=== PATIENT | female | born 1950 | race Caucasian/White ===

== ENCOUNTER 2017-01-17 14:31 | Emergency (ER) | payer OTHER ==
[2017-01-17 14:42] VITALS: BP 149/87
--- NOTE | 2017-01-17 15:40 | ED Physician Documentation ---
History of Present Illness - Stated complaint Stated Complaint: R ANKLE INJ - Chief complaint Chief Complaint: Ext Problem - Additonal information Additional information: hx from pt 66 female hx syncope with swallowing which has been worked up already and is not new per pt had syncope with swallowing today hurt her ankle no other injuries otherwise well and does not feel she needs more investigation into her syncopal episodes which have already been worked up Review of Systems Musculoskeletal: reports: Pain with weight bearing. denies: Neck pain Neurologic: denies: Head injury PD PAST MEDICAL HISTORY - Past Medical History Past Medical History: Yes Cardiovascular: None Respiratory: Asthma Endocrine/Autoimmune: None GI: Ulcerative colitis VEHICLE CARE SPECIALIST: None : None HEENT: None Psych: None Musculoskeletal: None Derm: None - Past Surgical History Past Surgical History: Yes /VEHICLE CARE SPECIALIST: Tubal ligation, Oophrectomy - Allergies Allergies/Adverse Reactions: Allergies Allergy/AdvReac Type Severity Reaction Status Date / Time iodine Allergy Itching Verified 01/17/17 14:42 - Social History Does the pt smoke?: No Smoking Status: Never smoker Does the pt drink ETOH?: Yes Does the pt have substance abuse?: No - Immunizations Immunizations are current?: Yes - POLST Patient has POLST: No PD ED PE NORMAL - Vitals Vital signs reviewed: Yes - Cardiac Cardiac: RRR - Respiratory Respiratory: No respiratory distress, Clear bilaterally - Abdomen Abdomen: Soft, Non tender - Derm Derm: Normal color - Extremities Extremities: Other (swelling to R ankle, no foot pain, no sig prox tib fib pain , no laxity, TTP chari mall and ant ankle, achilles intact, MSV intact, no open wound) Results - Vitals Vitals: Vital Signs - 24 hr 01/17/17 14:40 Temperature 36.7 C Heart Rate 72 Respiratory 18 Rate Blood Pressure 149/87 H O2 Saturation 99 Oxygen O2 Source Room air - EKG (time done) 1453 Rate: Rate (enter#) Rhythm: NSR [place]: RAD Intervals: RBBB (partial) QRS: Normal Ischemia: Normal ST segments Compare to prior EKG: Old EKG unavailable - Rads (name of study) ankle Radiology: See rad report (oblique inferior fibula fx 3 mm displacement and widened mortise) PD MEDICAL DECISION MAKING - ED course ED course: pt declined splint and wanted a walking boot and says she fully understands that she must not bear any weight Departure - Departure Disposition: Home, Self Care Clinical Impression: Ankle fracture, right Qualifiers: Encounter type: initial encounter Fracture type: closed Qualified Code(s): S82.891A - Other fracture of right lower leg, initial encounter for closed fracture Condition: Good Instructions: ED Fx Ankle General, ED Crutch Walking, ED Splint Care Fiberglass Follow-Up: [facility] [Provider Group] Comments: Tylenol ice and elevation for the pain. Even though you chose a camwalker over a splint YOU MUST NOT bear weight on the leg Call orthopedics to schedule follow up
--- NOTE | 2017-01-17 15:57 | XRAY Preliminary Report ---
Exam: XR ANKLE 3 VIEW RT IMPRESSION: Oblique inferior fibula fracture with 3 mm of displacement and mild widening of the ankle mortise. [facility] SITE ID: [id number]
--- NOTE | 2017-01-17 16:00 | XRAY Report ---
EXAM: RIGHT ANKLE RADIOGRAPHY EXAM DATE: 01/17/2017 03:34 PM. CLINICAL HISTORY: Fall ankle pain. COMPARISON: None. TECHNIQUE: 3 views. FINDINGS: Bones: There is an oblique fracture of the inferior fibula at diaphysis metaphysis junction. The infe rior fragment appears displaced laterally by 3 mm. Joints: There is mild widening of the ankle mortise. No dislocation. Soft Tissues: There is lateral ankle soft tissue swelling. IMPRESSION: Oblique inferior fibula fracture with 3 mm of displacement and mild widening of the ankle mortise. [facility] Referring Provider Line: [phone] SITE ID: [id number]
== END 2017-01-17 17:38 | disposition home or self-care (01) ==
LOC: ED 14:31
DX: S82.431A Displaced oblique fracture of shaft of right fibula, initial encounter for closed fracture (principal); W18.39XA Other fall on same level, initial encounter; I45.10 Unspecified right bundle-branch block; R94.31 Abnormal electrocardiogram [ECG] [EKG]; J45.909 Unspecified asthma, uncomplicated; Z87.19 Personal history of other diseases of the digestive system; R55 Syncope and collapse
CPT/HCPCS: 93005; 99283

== ENCOUNTER 2018-12-25 16:23 | Outpatient (CLI) | payer MEDICARE ==
--- NOTE | 2018-12-28 12:23 | Mammography Report ---
Reason: ROUTINE MAMMO Procedure Date: 12/25/2018 Accession Number: [id number] / [id number] Procedure: MANNIE - Screening Mammo w/Benji CPT Code: Final Report FULL RESULT: EXAM: Screening Mammo w/Benji DATE: 12/25/2018 4:54 PM CLINICAL HISTORY: Routine screening. New imaging baseline. No reported personal history of breast cancer. Family history breast cancer in daughter age 29 paternal aunt age 45. TECHNIQUE: (B) - Bilateral CC and MLO views were obtained. COMPARISON: None PARENCHYMAL PATTERN: (A) - The breasts demonstrate scattered fibroglandular densities bilaterally. FINDINGS: Bilateral breasts: Exam is technically limited in that the 3-D slice information of the right cc view is absent. There are no suspicious masses, calcifications, or areas of distortion. IMPRESSION: Incomplete examination. BI-RADS category 0. Technical repeat right cc view. RECOMMENDATION: (REPEAT) - right CC with 3-D imaging. BI-RADS CATEGORY: (0) - Incomplete Examination - need additional evaluation. STANDARD QUALIFYING STATEMENTS: 1. This examination was not reviewed with the aid of Computer-Aided Detection (CAD). 2. A negative or benign imaging report should not preclude biopsy if clinically suspicious findings are present. 3. Dense breasts may obscure an underlying neoplasm. 4. This examination was reviewed with the aid of 3D breast imaging (tomosynthesis).
== END 2018-12-25 16:24 | disposition home or self-care (01) ==
LOC: DI 16:23
PROVIDERS: ATTEND Internal Medicine
DX: Z12.31 Encounter for screening mammogram for malignant neoplasm of breast (principal); Z80.3 Family history of malignant neoplasm of breast
CPT/HCPCS: 77063; 77067

== ENCOUNTER 2019-02-14 14:36 | Outpatient (CLI) | payer MEDICARE ==
--- NOTE | 2019-02-14 16:40 | Mammography Report ---
Reason: TECH REPEAT - ROUTINE MAMMO Procedure Date: 02/14/2019 Accession Number: [id number] / [id number] Procedure: MANNIE - Screening Mammo w/Benji CPT Code: Final Report FULL RESULT: EXAM: Screening Mammo w/Benji, Breast Unilateral Limited DATE: 02/14/2019 3:04 PM CLINICAL HISTORY: Routine screening. New imaging baseline. No reported personal history of breast cancer. Family history breast cancer in daughter age 29 paternal aunt age 45. TECHNIQUE: (B) - Bilateral CC and MLO views were obtained. Examination is interpreted in conjunction with images obtained 12/25/2018. Additional focused diagnostic right breast examination is performed. COMPARISON: 12/25/2018. PARENCHYMAL PATTERN: (A) - The breast(s) demonstrate(s) scattered fibroglandular densities. FINDINGS: And isodense relatively well-circumscribed 0.5 cm apparent nodularity in the right breast 1.8 cm from the nipple in the retroareolar region is seen mammographically with an appearance potentially representing residual glandular parenchyma and further investigated with diagnostic right breast ultrasound which reveals normal breast tissue with no focal abnormal mass or architectural distortion. There are no suspicious masses, calcifications, or areas of distortion. IMPRESSION: Benign findings. BI-RADS category 2. RECOMMENDATION: (ANNUAL) - Recommend routine annual screening mammography. BI-RADS CATEGORY: (2) - Benign Findings. STANDARD QUALIFYING STATEMENTS: 1. This examination was not reviewed with the aid of Computer-Aided Detection (CAD). 2. A negative or benign imaging report should not preclude biopsy if clinically suspicious findings are present. 3. Dense breasts may obscure an underlying neoplasm. 4. This examination was reviewed with the aid of 3D breast imaging (tomosynthesis).
== END 2019-02-14 14:37 | disposition home or self-care (01) ==
LOC: DI 14:36
PROVIDERS: ATTEND Internal Medicine
DX: Z12.31 Encounter for screening mammogram for malignant neoplasm of breast (principal); Z80.3 Family history of malignant neoplasm of breast
CPT/HCPCS: 76642; 77063; 77067

== ENCOUNTER 2020-07-24 08:35 | Outpatient (CLI) | payer MEDICARE ==
[2020-07-24 14:44] LABS: BASOPHILS % (AUTO) 0.5 %; EOSINOPHILS # (AUTO) 0.3 10^3/uL (0.0-0.7); EOSINOPHILS % (AUTO) 3.5 %; HGB - HEMOGLOBIN 15.3 g/dL (12.0-16.0); LYMPHOCYTES # (AUTO) 1.9 10^3/uL (1.5-3.5); LYMPHOCYTES % (AUTO) 24.9 %; MEAN CORPUSCULAR HEMOGLOBIN 29.9 pg (27.0-31.0); MEAN CORPUSCULAR HGB CONC 31.9 g/dL (32.0-36.0); MEAN CORPUSCULAR VOLUME 93.8 fL (81.0-99.0); MEAN PLATELET VOLUME 10.4 fL (7.9-10.8); MONOCYTES # (AUTO) 0.4 10^3/uL (0.0-1.0); MONOCYTES % (AUTO) 5.7 %; NEUTROPHILS # (AUTO) 4.8 10^3/uL (1.5-6.6); NEUTROPHILS % (AUTO) 64.7 %; PLT - PLATELET COUNT 286 10^3/uL (130-450); RED BLOOD COUNT 5.12 10^6/uL (4.20-5.40); RED CELL DISTRIBUTION WIDTH 13.4 % (12.0-15.0); WHITE BLOOD COUNT 7.5 x10^3/uL (4.8-10.8)
[2020-07-24 15:31] LABS: ALBUMIN 4.4 g/dL (3.2-5.5); ALBUMIN/GLOBULIN RATIO 1.3 (1.0-2.2); ALKALINE PHOSPHATASE 107 IU/L (42-121); ALT ALANINE AMINOTRANSFERASE 23 IU/L (10-60); AST ASPARTATE AMINOTRANSFERASE 25 IU/L (10-42); BILIRUBIN,TOTAL 0.6 mg/dL (0.2-1.0); BUN - BLOOD UREA NITROGEN 12 mg/dL (6-20); CALCIUM 9.6 mg/dL (8.5-10.3); CARBON DIOXIDE - CO2 27 mmol/L (21-32); CHLORIDE 100 mmol/L (101-111); CHOL/HDL RATIO 4.5 (<4.4); CHOLESTEROL 242 mg/dL; CREATININE 0.8 mg/dL (0.4-1.0); GFR - MDRD 71 (>89); GLUCOSE 103 mg/dL (70-100); HDL CHOLESTEROL 54 mg/dL; POTASSIUM 4.6 mmol/L (3.5-5.0); SODIUM 139 mmol/L (135-145); TOTAL PROTEIN 7.8 g/dL (6.7-8.2); TRIGLYCERIDES 461 mg/dL
[2020-07-24 15:38] LABS: THYROID STIMULATING HORMONE 3.88 uIU/mL (0.34-5.60)
[2020-07-24 15:57] LABS: LDL CHOLESTEROL,DIRECT 142 mg/dL; LDLD/HDL RATIO 2.6 (<4.4)
== END 2020-07-24 08:36 | disposition home or self-care (01) ==
LOC: LAB.S 08:35
PROVIDERS: ATTEND Internal Medicine
DX: I10 Essential (primary) hypertension (principal); R23.2 Flushing
CPT/HCPCS: 36415; 80053; 80061; 83721; 84443; 85025

== ENCOUNTER 2020-11-23 22:35 | Outpatient (CLI) | payer MEDICARE | END 2020-11-23 22:36 | disposition critical access hospital (66) | LOC: EMS 22:35 | DX: K92.1 Melena (principal); R11.2 Nausea with vomiting, unspecified; R42 Dizziness and giddiness; R61 Generalized hyperhidrosis; R00.0 Tachycardia, unspecified | CPT/HCPCS: A0425; A0427 ==

== ENCOUNTER 2020-11-23 23:18 | Inpatient (IN) | payer MEDICARE ==
[2020-11-23] MEDS ORDERED: SODIUM CHLORIDE 0.9% 1,000 ML IV STA (23:29)
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
[2020-11-24 00:25] LABS: BASOPHILS % (AUTO) 0.2 %; HCT - HEMATOCRIT 23.4 % (37.0-47.0); HGB - HEMOGLOBIN 7.4 g/dL (12.0-16.0); LYMPHOCYTES # (AUTO) 1.4 10^3/uL (1.5-3.5); LYMPHOCYTES % (AUTO) 9.9 %; MEAN CORPUSCULAR HEMOGLOBIN 31.2 pg (27.0-31.0); MEAN CORPUSCULAR HGB CONC 31.6 g/dL (32.0-36.0); MEAN CORPUSCULAR VOLUME 98.7 fL (81.0-99.0); MEAN PLATELET VOLUME 10.6 fL (7.9-10.8); MONOCYTES # (AUTO) 0.5 10^3/uL (0.0-1.0); MONOCYTES % (AUTO) 3.5 %; NEUTROPHILS # (AUTO) 12.2 10^3/uL (1.5-6.6); NEUTROPHILS % (AUTO) 85.8 %; PLT - PLATELET COUNT 207 10^3/uL (130-450); RED BLOOD COUNT 2.37 10^6/uL (4.20-5.40); RED CELL DISTRIBUTION WIDTH 14.6 % (12.0-15.0); WHITE BLOOD COUNT 14.2 x10^3/uL (4.8-10.8)
[2020-11-24 00:37] LABS: ALBUMIN 3.3 g/dL (3.2-5.5); ALBUMIN/GLOBULIN RATIO 1.4 (1.0-2.2); BILIRUBIN,TOTAL 0.5 mg/dL (0.2-1.0); CALCIUM 7.9 mg/dL (8.5-10.3); CREATININE 0.8 mg/dL (0.4-1.0); POTASSIUM 3.7 mmol/L (3.5-5.0); TOTAL PROTEIN 5.6 g/dL (6.7-8.2)
[2020-11-24] MEDS ORDERED: PANTOPRAZOLE 40 MG VIAL IVP STA (00:42)
[2020-11-24 00:50] LABS: B. PARAPERTUSSIS- RESP PCR PAN NOT DETECTED; B. PERTUSSIS- RESP PCR PANEL NOT DETECTED; C. PNEUMONIAE- RESP PCR PANEL NOT DETECTED; CORONAVIRUS 229E-RESP PCR NOT DETECTED; CORONAVIRUS HKU1-RESP PCR NOT DETECTED; CORONAVIRUS NL63-RESP PCR NOT DETECTED; CORONAVIRUS OC43-RESP PCR NOT DETECTED; HUMAN METAPNEUMOVIRUS NOT DETECTED; INFLUENZA A- RESP PCR PANEL NOT DETECTED; INFLUENZA B - RESP PCR PANEL NOT DETECTED; M. PNEUMONIAE- RESP PCR PANEL NOT DETECTED; PARAINFLUENZA VIRUS 1 NOT DETECTED; PARAINFLUENZA VIRUS 2 NOT DETECTED; PARAINFLUENZA VIRUS 3 NOT DETECTED; PARAINFLUENZA VIRUS 4 NOT DETECTED; RHINOVIRUS/ENTEROVIRUS NOT DETECTED; RSV- RESP PCR PANEL NOT DETECTED; SARS-CoV-2 -RESP PCR PANEL NOT DETECTED
[2020-11-24] MEDS ORDERED: ONDANSETRON 4 MG/2 ML VIAL IVP PRN (01:08)
[2020-11-24] MEDS ORDERED: LORazepam 2 MG/ML VIAL IVP PRN (01:13)
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
[2020-11-24 01:30] LABS: CREATININE 0.8 mg/dL (0.4-1.0); MAGNESIUM 1.8 mg/dL (1.7-2.8); PHOSPHORUS 2.8 mg/dL (2.5-4.6); POTASSIUM 3.8 mmol/L (3.5-5.0)
[2020-11-24] MEDS: SODIUM CHLORIDE 0.9% 1,000 ML IV SCH ×3 (02:13→12:39)
[2020-11-24] MEDS: SODIUM CHLORIDE FLUSH 0.9% 10 ML SYRINGE IVP PRN ×2 (02:13→17:40)
[2020-11-24 05:37] LABS: BASOPHILS % (AUTO) 0.2 %; EOSINOPHILS % (AUTO) 0.1 %; HCT - HEMATOCRIT 24.4 % (37.0-47.0); HGB - HEMOGLOBIN 7.6 g/dL (12.0-16.0); LYMPHOCYTES # (AUTO) 1.9 10^3/uL (1.5-3.5); LYMPHOCYTES % (AUTO) 14.4 %; MEAN CORPUSCULAR HEMOGLOBIN 29.8 pg (27.0-31.0); MEAN CORPUSCULAR HGB CONC 31.1 g/dL (32.0-36.0); MEAN CORPUSCULAR VOLUME 95.7 fL (81.0-99.0); MEAN PLATELET VOLUME 10.5 fL (7.9-10.8); MONOCYTES # (AUTO) 0.5 10^3/uL (0.0-1.0); NEUTROPHILS # (AUTO) 10.7 10^3/uL (1.5-6.6); NEUTROPHILS % (AUTO) 80.5 %; NRBC ABSOLUTE COUNT (AUTO) 0.02 x10^3/uL; NUCLEATED RED BLOOD CELLS AUTO 0.2 /100WBC; PLT - PLATELET COUNT 192 10^3/uL (130-450); RED BLOOD COUNT 2.55 10^6/uL (4.20-5.40); RED CELL DISTRIBUTION WIDTH 16.9 % (12.0-15.0); WHITE BLOOD COUNT 13.3 x10^3/uL (4.8-10.8)
[2020-11-24] MEDS ORDERED: WITCH HAZEL/GLYCERIN 1 PAD TOP PRN (06:45)
[2020-11-24] MEDS: SODIUM CHLORIDE FLUSH 0.9% 10 ML SYRINGE IVP SCH ×3 (08:06→23:42)
[2020-11-24] MEDS: THIAMINE 100 MG TABLET PO SCH (08:06)
[2020-11-24] MEDS: PANTOPRAZOLE 40 MG VIAL IVP SCH ×2 (08:06→20:41)
--- NOTE | 2020-11-24 08:14 | CONSULTATION NOTE ---
Surgery Consult - Admit Date Hospital Admission Date: 11/24/20 - Consult Date Consult Date: 11/24/20 Requesting Provider: Xin - Chief Complaint Chief Complaint: Abdominal pain and tarry stools - Home Meds/Allergies Home Medications: Patient History Medication Instructions Recorded Confirmed Lisinopril [Zestril] 10 mg PO DAILY 11/23/20 11/23/20 Montelukast [Singulair] 10 mg PO DAILY 11/23/20 11/23/20 Allergies/Adverse Reactions: Allergies Allergy/AdvReac Type Severity Reaction Status Date / Time iodine Allergy Itching Verified 11/23/20 23:27 - Vital Signs Vital Signs: Last Vital Signs Temp 37.3 C 11/24/20 07:35 Pulse 104 H 11/24/20 07:35 Resp 16 11/24/20 07:35 BP 118/59 L 11/24/20 07:35 Pulse Ox 99 11/24/20 05:22 Intake & Output: Intake & Output 11/21/20 11/22/20 11/23/20 11/24/20 23:59 23:59 23:59 23:59 Intake Total 1944 Balance 1944 - Lab Results Result Diagrams: 11/24/20 05:30 11/24/20 00:16 - Consultation Note Consultation Note: Very pleasant 70-year-old lady who presented the emergency room last evening complaining of a couple of days of progressive abdominal pain and black tarry stools. She says she had a EGD and colonoscopy about 10 years ago. She did not have any polyps but was diagnosed with lymphocytic colitis. She was on Entocort for a while and then switched to Boswellia and some other naturopathic remedies that have worked well for her.She lost her about 6 months ago and says that she has been drinking a little bit more than she perhaps ought to on a regular basis. She has been taking her vitamins and supplements regularly and feels like her diet is good. She is very active. She tells me she is feeling much better than she did at the time of admission. Complete 10 system review is negative except for what is mentioned in the history of present illness Physical exam HEENT: Normocephalic and atraumatic, pupils are equal round reactive to light and accommodation with anicteric sclera Lungs: Clear bilaterally Heart: Regular rate and rhythm Abdomen: Soft, tender to palpation in the midepigastrium and very mildly gl obally tender to palpation.Normal active bowel sounds. No rebound or guarding. No peritoneal signs. Extremities: Warm and well-perfused. Assessment is GI hemorrhage, likely upper source in the setting of a healthy and active 70-year-old lady. I agree with recommendation for EGD. She will need a colonoscopy as well but we can do this as an outpatient if we find her source of bleeding in the forgot. She also reports that she has significant difficulty with her hemorrhoids and she is not comfortable with the idea of doing a prep at this time. We discussed the risks, benefits, and alternatives to EGD and she is expressed a desire to have the procedure. Both written and verbal consent were obtained.
--- NOTE | 2020-11-24 08:43 | ANESTHESIA ---
Pre-Anesthesia VS, & Labs - Diagnosis GI bleed - Procedure EGD Vital Signs: Temp Pulse Resp BP Pulse Ox 37.3 C 104 H 16 118/59 L 98 11/24/20 07:35 11/24/20 07:35 11/24/20 07:35 11/24/20 07:35 11/24/20 08:16 Height: 5 ft Weight (kg): 80 kg Body Mass Index: 34.4 BMI Classification: Obese - NPO >8 hours - Is Patient ?: No - Lab Results Current Lab Results: Laboratory Tests 11/24/20 05:30: WBC 13.3 H, RBC 2.55 L, Hgb 7.6 L, Hct 24.4 L, MCV 95.7, MCH 29.8, MCHC 31.1 L, RDW 16.9 H, Plt Count 192, MPV 10.5, Neut # (Auto) 10.7 H, Lymph # (Auto) 1.9, [place] # (Auto) 0.5, Eos # (Auto) 0.0, Baso # (Auto) 0.0, Absolute Nucleated RBC 0.02, Nucleated RBC % 0.2 11/24/20 01:35: Blood Type Recheck A POSITIVE 11/24/20 00:16: Vitamin B12 154 L, Folate 27.00 11/24/20 00:16: Sodium 143, Potassium 3.8, Chloride 111, Carbon Dioxide 22, Anion Gap 10.0, BUN 39 H, Creatinine 0.8, Estimated GFR (MDRD) 71 L, Glucose 145 H, Calcium 8.0 L, Phosphorus 2.8, Magnesium 1.8 11/24/20 00:16: Sodium 142, Potassium 3.7, Chloride 111, Carbon Dioxide 20 L, Anion Gap 11.0, BUN 38 H, Creatinine 0.8, Estimated GFR (MDRD) 71 L, Glucose 146 H, Calcium 7.9 L, Total Bilirubin 0.5, AST 18, ALT 17, Alkaline Phosphatase 50, Total Protein 5.6 L, Albumin 3.3, Globulin 2.3, Albumin/Globulin Ratio 1.4, Lipase 20 L 11/24/20 00:16: WBC 14.2 H, RBC 2.37 L, Hgb 7.4 L, Hct 23.4 L, MCV 98.7, MCH 31.2 H, MCHC 31.6 L, RDW 14.6, Plt Count 207, MPV 10.6, Neut # (Auto) 12.2 H, Lymph # (Auto) 1.4 L, [place] # (Auto) 0.5, Eos # (Auto) 0.0, Baso # (Auto) 0.0, Absolute Nucleated RBC 0.00, Nucleated RBC % 0.0 11/24/20 00:16: Blood Type A POSITIVE, Antibody Screen NEGATIVE, Crossmatch IS Only See Detail Lab results reviewed: Yes Fish Bones: 11/24/20 05:30 11/24/20 00:16 Home Medications and Allergies Home Medications: Ambulatory Orders Lisinopril [Zestril] 10 mg PO DAILY 11/23/20 Montelukast [Singulair] 10 mg PO DAILY 11/23/20 Active Medications Sodium Chloride (Normal Saline 0.9%) 1,000 mls @ 100 mls/hr IV .Q10H [facility] Last Admin: 11/24/20 08:08 Dose: 100 mls/hr Documented by: Lorazepam (Lorazepam 2 Mg/Ml Vial) 1 mg IVP Q30M PRN; Protocol PRN Reason: CIWA >8 Ondansetron HCl (Ondansetron 4 Mg/2 Ml Vial) 4 mg IVP Q6HR PRN PRN Reason: Nausea / Vomiting Pantoprazole Sodium (Pantoprazole 40 Mg Vial) 40 mg IVP BID [facility] Last Admin: 11/24/20 08:06 Dose: 40 mg Documented by: Sodium Chloride (Sodium Chloride Flush 0.9% 10 Ml Syringe) 10 ml IVP PRN PRN PRN Reason: NEEDED PER PROVIDER ORDERS Last Admin: 11/24/20 02:13 Dose: 10 ml Documented by: Sodium Chloride (Sodium Chloride Flush 0.9% 10 Ml Syringe) 10 ml IVP 0100,0900,1700 [facility] Last Admin: 11/24/20 08:06 Dose: 10 ml Documented by: Thiamine HCl (Thiamine 100 Mg Tablet) 100 mg PO DAILY [facility] Last Admin: 11/24/20 08:06 Dose: 100 mg Documented by: Witch Kaci/Glycerin (Witch Kaci/Glycerin 1 Pad) 1 pad TOP PRN PRN PRN Reason: ITCHING Lisinopril [Zestril] 10 mg PO DAILY 11/23/20 Montelukast [Singulair] 10 mg PO DAILY 11/23/20 Allergies/Adverse Reactions: Allergies Allergy/AdvReac Type Severity Reaction Status Date / Time iodine Allergy Itching Verified 11/23/20 23:27 Anes History & Medical History - Anesthetic History Anesthesia Complications: reports: No previous complications Family history of Anesthesia Complications: Denies Family history of Malignant Hyperthermia: Denies - Medical History Cardiovascular: reports: None Pulmonary: reports: Asthma Gastrointestinal: reports: Ulcerative colitis Urinary: reports: None Musculoskeletal: reports: None Endocrine/Autoimmune: reports: None Blood Disorders: reports: None Skin: reports: None Smoking Status: Current every day smoker Psychosocial: reports: Alcohol (4 rum drinks per day), Cannabis (daily) - Surgical History Gynecologic: reports: Tubal ligation, Oophrectomy Exam General: Alert, Oriented x3, Cooperative, No acute distress Dental: WNL Mouth Openin Fingerbreadth Neck Mobility: Normal Mallampati classification: I Respiratory: Lungs clear, Normal breath sounds, No respiratory distress, No accessory muscle use Cardiovascular: Regular rate, Normal S1, Normal S2, No murmurs Plan Anesthesia Type: General, Total IV Consent for Procedure(s) Verified and Reviewed: Yes Code Status: Attempt Resuscitation ASA classification: 3-Severe systemic disease Is this case an emergency?: No
--- NOTE | 2020-11-24 10:35 | PHARMACY PROGRESS NOTE ---
- Best Possible Medication History Admit Date and Time: 11/24/20 0108 Processed by: Nursing Medication History completed: Yes As the person ultimately responsible for medication therapy, providers are able to order a medication from an existing home medication list in [facility] via the "Reconcile Routine" prior to Confirmation of that medication by lab support technician. Such practice is discouraged except when the physician, in their clinical judgment, deems that a medical need exists for a medication without regard to previous use.
[2020-11-24] MEDS ORDERED: MIDAZOLAM 2 MG/2 ML VIAL ONE (11:52)
[2020-11-24] MEDS ORDERED: PROPOFOL 200 MG/20 ML VIAL IVP ONE (11:53)
[2020-11-24 14:40] LABS: HCT - HEMATOCRIT 20.9 % (37.0-47.0); MEAN CORPUSCULAR HEMOGLOBIN 30.2 pg (27.0-31.0); MEAN CORPUSCULAR HGB CONC 32.1 g/dL (32.0-36.0); MEAN CORPUSCULAR VOLUME 94.1 fL (81.0-99.0); MEAN PLATELET VOLUME 10.3 fL (7.9-10.8); RED BLOOD COUNT 2.22 10^6/uL (4.20-5.40); RED CELL DISTRIBUTION WIDTH 18.3 % (12.0-15.0); WHITE BLOOD COUNT 12.6 x10^3/uL (4.8-10.8)
[2020-11-24 14:43] LABS: HGB - HEMOGLOBIN 6.7 g/dL (12.0-16.0)
[2020-11-24] MEDS ORDERED: CYANOCOBALAMIN 1,000 MCG/ML VIAL IM ONE (15:26)
--- NOTE | 2020-11-24 15:29 | PROVIDER PROGRESS NOTE ---
Subjective - Prog Note Date Prog Note Date: 11/24/20 Prog Note Time: 03:28 - Subjective Pt reports feeling: No change (Feels the same after the endoscopy. No pain or discomfort.) Subjective: Patient had upper endoscopy earlier today which showed polyps and a mass which were biopsied. The patient was resting comfortably in bed and in no apparent distress. She was alert and able to answer questions appropriately. She was informed about the polyps/mass. Her main concern is having to [facility]. She was informed about her current situation and about having to wait for the biopsy results. She is aware that her hematocrit is low and will require another transfusion. She feels very relieved after talking to the doctor. She is also relieved that she doesn't have to go home today.She has no additional needs at this time. Her vital signs are currently stable at this time. Current Medications - Current Medications Current Medications: Active Medications Cyanocobalamin (Cyanocobalamin 500 Mcg Tablet) 500 mcg PO DAILY [facility] Sodium Chloride (Normal Saline 0.9%) 1,000 mls @ 100 mls/hr IV .Q10H [facility] Last Admin: 11/24/20 12:39 Dose: 100 mls/hr Documented by: Lorazepam (Lorazepam 2 Mg/Ml Vial) 1 mg IVP Q30M PRN; Protocol PRN Reason: CIWA >8 Ondansetron HCl (Ondansetron 4 Mg/2 Ml Vial) 4 mg IVP Q6HR PRN PRN Reason: Nausea / Vomiting Pantoprazole Sodium (Pantoprazole 40 Mg Vial) 40 mg IVP BID [facility] Last Admin: 11/24/20 08:06 Dose: 40 mg Documented by: Sodium Chloride (Sodium Chloride Flush 0.9% 10 Ml Syringe) 10 ml IVP PRN PRN PRN Reason: NEEDED PER PROVIDER ORDERS Last Admin: 11/24/20 02:13 Dose: 10 ml Documented by: Sodium Chloride (Sodium Chloride Flush 0.9% 10 Ml Syringe) 10 ml IVP 0100,0900,1700 [facility] Last Admin: 11/24/20 08:06 Dose: 10 ml Documented by: Thiamine HCl (Thiamine 100 Mg Tablet) 100 mg PO DAILY [facility] Last Admin: 11/24/20 08:06 Dose: 100 mg Documented by: Witch Kaci/Glycerin (Witch Kaci/Glycerin 1 Pad) 1 pad TOP PRN PRN PRN Reason: ITCHING Lisinopril [Zestril] 10 mg PO DAILY 11/23/20 Montelukast [Singulair] 10 mg PO DAILY 11/23/20 Objective - Vital Signs/Intake & Output Vital Signs: Vital Signs x48h Temp Pulse Pulse Resp BP BP Pulse Ox 11/24/20 14:43 36.9 C 91 18 118/64 99 11/24/20 12:28 37.1 C 89 18 101/43 L 97 11/24/20 11:54 36.9 C 91 16 115/61 97 11/24/20 08:16 98 11/24/20 07:35 37.3 C 104 H 16 118/59 L Intake & Output: Intake & Output 11/21/20 11/22/20 11/23/20 11/24/20 23:59 23:59 23:59 23:59 Intake Total 2746.667 Balance 2746.667 - Objective General Appearance: positive: No acute distress, Alert (Able to answer questions appropriately), Other (Appears own age and has normal voice quality) Eyes Bilateral: positive: PERRL, EOMI Neck: positive: No JVD, Trachea midline Respiratory: positive: No respiratory distress. negative: Wheezes, Rales, Rhonchi Cardiovascular: positive: Regular rate & rhythm, No murmur, No gallop Peripheral Pulses: 1+ Radial (R), 1+ Radial (L), 1+ Dorsalis pedis (R), 1+ Dorsalis pedis (L) Abdomen: positive: Non-tender, Nml bowel sounds. negative: Guarding, Rebound Skin: positive: Warm, Dry Extremities: positive: Full ROM, No pedal edema Neurologic/Psychiatric: positive: Oriented x3, CN's nml (2-12), Motor nml, Sensation nml - Lab Results Fish Bones: 11/24/20 14:28 11/24/20 00:16 Other Labs: Lab Results x24hrs 11/24/20 11/24/20 11/24/20 Range/Units 14:28 05:30 01:35 WBC 12.6 H 13.3 H (4.8-10.8) x10^3/uL RBC 2.22 L 2.55 L (4.20-5.40) 10^6/uL Hgb 6.7 L* 7.6 L (12.0-16.0) g/dL Hct 20.9 L 24.4 L (37.0-47.0) % MCV 94.1 95.7 (81.0-99.0) fL MCH 30.2 29.8 (27.0-31.0) pg MCHC 32.1 31.1 L (32.0-36.0) g/dL RDW 18.3 H 16.9 H (12.0-15.0) % Plt Count 161 192 (130-450) 10^3/uL MPV 10.3 10.5 (7.9-10.8) fL Neut # (Auto) 10.7 H (1.5-6.6) 10^3/uL Lymph # (Auto) 1.9 (1.5-3.5) 10^3/uL [place] # (Auto) 0.5 (0.0-1.0) 10^3/uL Eos # (Auto) 0.0 (0.0-0.7) 10^3/uL Baso # (Auto) 0.0 (0.0-0.1) 10^3/uL Absolute Nucleated RBC 0.02 x10^3/uL Nucleated RBC % 0.2 /100WBC Sodium (135-145) mmol/L Potassium (3.5-5.0) mmol/L Chloride (101-111) mmol/L Carbon Dioxide (21-32) mmol/L Anion Gap (6-13) BUN (6-20) mg/dL Creatinine (0.4-1.0) mg/dL Estimated GFR (MDRD) (>89) Glucose (70-100) mg/dL Calcium (8.5-10.3) mg/dL Phosphorus (2.5-4.6) mg/dL Magnesium (1.7-2.8) mg/dL Total Bilirubin (0.2-1.0) mg/dL AST (10-42) IU/L ALT (10-60) IU/L Alkaline Phosphatase (42-121) IU/L Total Protein (6.7-8.2) g/dL Albumin (3.2-5.5) g/dL Globulin (2.1-4.2) g/dL Albumin/Globulin Ratio (1.0-2.2) Lipase (22-51) U/L Vitamin B12 (180-914) pg/mL Folate (5.90 - >24.8) ng/mL Nasal Adenovirus (PCR) Nasal B. parapertussis DNA (PCR) Nasal Coronavir 229E PCR Nasal Coronavir HKU1 PCR Nasal Coronavir NL63 PCR Nasal Coronavir OC43 PCR Nasal Enterovir/Rhinovir PCR Nasal Influenza B PCR Nasal Influenza A PCR Nasal Parainfluen 1 PCR Nasal Parainfluen 2 PCR Nasal Parainfluen 3 PCR Nasal Parainfluen 4 PCR Nasal RSV (PCR) Nasal B.pertussis DNA PCR Nasal C.pneumoniae (PCR) Mati Human Metapneumo PCR Nasal M.pneumoniae (PCR) Nasal SARS-CoV-2 (PCR) Blood Type Blood Type Recheck A POSITIVE Antibody Screen Crossmatch IS Only 11/24/20 11/24/20 11/24/20 Range/Units 00:16 00:16 00:16 WBC (4.8-10.8) x10^3/uL RBC (4.20-5.40) 10^6/uL Hgb (12.0-16.0) g/dL Hct (37.0-47.0) % MCV (81.0-99.0) fL MCH (27.0-31.0) pg MCHC (32.0-36.0) g/dL RDW (12.0-15.0) % Plt Count (130-450) 10^3/uL MPV (7.9-10.8) fL Neut # (Auto) (1.5-6.6) 10^3/uL Lymph # (Auto) (1.5-3.5) 10^3/uL [place] # (Auto) (0.0-1.0) 10^3/uL Eos # (Auto) (0.0-0.7) 10^3/uL Baso # (Auto) (0.0-0.1) 10^3/uL Absolute Nucleated RBC x10^3/uL Nucleated RBC % /100WBC Sodium 143 142 (135-145) mmol/L Potassium 3.8 3.7 (3.5-5.0) mmol/L Chloride 111 111 (101-111) mmol/L Carbon Dioxide 22 20 L (21-32) mmol/L Anion Gap 10.0 11.0 (6-13) BUN 39 H 38 H (6-20) mg/dL Creatinine 0.8 0.8 (0.4-1.0) mg/dL Estimated GFR (MDRD) 71 L 71 L (>89) Glucose 145 H 146 H (70-100) mg/dL Calcium 8.0 L 7.9 L (8.5-10.3) mg/dL Phosphorus 2.8 (2.5-4.6) mg/dL Magnesium 1.8 (1.7-2.8) mg/dL Total Bilirubin 0.5 (0.2-1.0) mg/dL AST 18 (10-42) IU/L ALT 17 (10-60) IU/L Alkaline Phosphatase 50 (42-121) IU/L Total Protein 5.6 L (6.7-8.2) g/dL Albumin 3.3 (3.2-5.5) g/dL Globulin 2.3 (2.1-4.2) g/dL Albumin/Globulin Ratio 1.4 (1.0-2.2) Lipase 20 L (22-51) U/L Vitamin B12 154 L (180-914) pg/mL Folate 27.00 (5.90 - >24.8) ng/mL Nasal Adenovirus (PCR) Nasal B. parapertussis DNA (PCR) Nasal Coronavir 229E PCR Nasal Coronavir HKU1 PCR Nasal Coronavir NL63 PCR Nasal Coronavir OC43 PCR Nasal Enterovir/Rhinovir PCR Nasal Influenza B PCR Nasal Influenza A PCR Nasal Parainfluen 1 PCR Nasal Parainfluen 2 PCR Nasal Parainfluen 3 PCR Nasal Parainfluen 4 PCR Nasal RSV (PCR) Nasal B.pertussis DNA PCR Nasal C.pneumoniae (PCR) Mati Human Metapneumo PCR Nasal M.pneumoniae (PCR) Nasal SARS-CoV-2 (PCR) Blood Type Blood Type Recheck Antibody Screen Crossmatch IS Only 11/24/20 11/24/20 11/23/20 Range/Units 00:16 00:16 23:31 WBC 14.2 H (4.8-10.8) x10^3/uL RBC 2.37 L (4.20-5.40) 10^6/uL Hgb 7.4 L (12.0-16.0) g/dL Hct 23.4 L (37.0-47.0) % MCV 98.7 (81.0-99.0) fL MCH 31.2 H (27.0-31.0) pg MCHC 31.6 L (32.0-36.0) g/dL RDW 14.6 (12.0-15.0) % Plt Count 207 (130-450) 10^3/uL MPV 10.6 (7.9-10.8) fL Neut # (Auto) 12.2 H (1.5-6.6) 10^3/uL Lymph # (Auto) 1.4 L (1.5-3.5) 10^3/uL [place] # (Auto) 0.5 (0.0-1.0) 10^3/uL Eos # (Auto) 0.0 (0.0-0.7) 10^3/uL Baso # (Auto) 0.0 (0.0-0.1) 10^3/uL Absolute Nucleated RBC 0.00 x10^3/uL Nucleated RBC % 0.0 /100WBC Sodium (135-145) mmol/L Potassium (3.5-5.0) mmol/L Chloride (101-111) mmol/L Carbon Dioxide (21-32) mmol/L Anion Gap (6-13) BUN (6-20) mg/dL Creatinine (0.4-1.0) mg/dL Estimated GFR (MDRD) (>89) Glucose (70-100) mg/dL Calcium (8.5-10.3) mg/dL Phosphorus (2.5-4.6) mg/dL Magnesium (1.7-2.8) mg/dL Total Bilirubin (0.2-1.0) mg/dL AST (10-42) IU/L ALT (10-60) IU/L Alkaline Phosphatase (42-121) IU/L Total Protein (6.7-8.2) g/dL Albumin (3.2-5.5) g/dL Globulin (2.1-4.2) g/dL Albumin/Globulin Ratio (1.0-2.2) Lipase (22-51) U/L Vitamin B12 (180-914) pg/mL Folate (5.90 - >24.8) ng/mL Nasal Adenovirus (PCR) NOT DETECTED Nasal B. parapertussis DNA (PCR) NOT DETECTED Nasal Coronavir 229E PCR NOT DETECTED Nasal Coronavir HKU1 PCR NOT DETECTED Nasal Coronavir NL63 PCR NOT DETECTED Nasal Coronavir OC43 PCR NOT DETECTED Nasal Enterovir/Rhinovir PCR NOT DETECTED Nasal Influenza B PCR NOT DETECTED Nasal Influenza A PCR NOT DETECTED Nasal Parainfluen 1 PCR NOT DETECTED Nasal Parainfluen 2 PCR NOT DETECTED Nasal Parainfluen 3 PCR NOT DETECTED Nasal Parainfluen 4 PCR NOT DETECTED Nasal RSV (PCR) NOT DETECTED Nasal B.pertussis DNA PCR NOT DETECTED Nasal C.pneumoniae (PCR) NOT DETECTED Mati Human Metapneumo PCR NOT DETECTED Nasal M.pneumoniae (PCR) NOT DETECTED Nasal SARS-CoV-2 (PCR) NOT DETECTED Blood Type A POSITIVE Blood Type Recheck Antibody Screen NEGATIVE Crossmatch IS Only See Detail Assessment/Plan - Problem List (1) GI bleeding Impression: Conclusion/Plan: Upper GI Bleed suspected Dr. Antunez performed upper endoscopy this afternoon. Surgical record mentioned multiple lesions in 2nd portion of duodenum.Likely the cause of the bleed. Still awaiting full surgical report. Protonix 40 mg IV twice daily ordered. IV hydration with normal saline at 100 mL/h. After the transfusion of her first unit her hgb was still 7.6. It is currently 6.7. Will order another unit. Continue to monitor Clear liquid diet ordered. Qualifiers: GI bleed type/associated pathology: melena Qualified Code(s): K92.1 - Melena (2) Alcohol abuse Conclusion/Plan: Patient drinks 3-4 drinks which contain rum daily. She last drank about 24 hours ago. CIWA protocol ordered. We will also check magnesium, phosphorus, vitamin B12 and folate. No changes as of 11/24. (3) Leukocytosis Conclusion/Plan: White blood cell count was 14 and has trended down to 13.3 and recently to 12.6. This is indicates that it is most likely reactive. We will continue to monitor. (4) Tachycardia Conclusion/Plan: RESOLVED: After fluid rehydration and transfusion of 1 unit the patients tachycardia has resolved. Her HR has stayed in the range of 80-90 BMP. (5) Hypertension Conclusion/Plan: Patients blood pressure is 121/54. She is going to be transfused another unit. Will continue to hold off on patients lisinopril. We will resume lisinopril once patient's underlying problem has been addressed Qualifiers: GI bleed type/associated pathology: melena Qualified Code(s): K92.1 - Melena
--- NOTE | 2020-11-24 16:32 | ANESTHESIA POST OP EVALUATION ---
Anesthesia Post Eval - Post Anesthesia Eval Vitals: Last Vital Signs Temp 36.9 C 11/24/20 16:22 Pulse 95 11/24/20 16:22 Resp 16 11/24/20 16:22 BP 121/54 L 11/24/20 16:22 Pulse Ox 94 11/24/20 16:22 CV Function Including HR & BP: Stable Pain Control: Satisfactory Nausea & Vomiting: Negative Mental Status: Baseline Respiratory Status: Airway Patent Hydration Status: Satisfactory Anesthesia Complications: None
[2020-11-24] MEDS ORDERED: ACETAMINOPHEN 325 MG TABLET PO PRN (23:40)
[2020-11-25] MEDS ORDERED: SIMETHICONE 40 MG/0.6 ML 30 ML BOTTLE PO PRN (00:07)
[2020-11-25] MEDS: SODIUM CHLORIDE 0.9% 1,000 ML IV SCH ×3 (04:29→16:00)
[2020-11-25 05:45] LABS: BASOPHILS % (AUTO) 0.4 %; EOSINOPHILS # (AUTO) 0.1 10^3/uL (0.0-0.7); EOSINOPHILS % (AUTO) 1.2 %; HCT - HEMATOCRIT 21.9 % (37.0-47.0); HGB - HEMOGLOBIN 7.1 g/dL (12.0-16.0); LYMPHOCYTES # (AUTO) 2.6 10^3/uL (1.5-3.5); LYMPHOCYTES % (AUTO) 23.6 %; MEAN CORPUSCULAR HEMOGLOBIN 30.2 pg (27.0-31.0); MEAN CORPUSCULAR HGB CONC 32.4 g/dL (32.0-36.0); MEAN CORPUSCULAR VOLUME 93.2 fL (81.0-99.0); MEAN PLATELET VOLUME 10.7 fL (7.9-10.8); MONOCYTES # (AUTO) 0.7 10^3/uL (0.0-1.0); MONOCYTES % (AUTO) 6.1 %; NEUTROPHILS # (AUTO) 7.4 10^3/uL (1.5-6.6); NEUTROPHILS % (AUTO) 66.7 %; NRBC ABSOLUTE COUNT (AUTO) 0.05 x10^3/uL; NUCLEATED RED BLOOD CELLS AUTO 0.5 /100WBC; PLT - PLATELET COUNT 138 10^3/uL (130-450); RED BLOOD COUNT 2.35 10^6/uL (4.20-5.40); RED CELL DISTRIBUTION WIDTH 17.6 % (12.0-15.0)
[2020-11-25 05:51] LABS: CALCIUM 7.4 mg/dL (8.5-10.3); CREATININE 0.7 mg/dL (0.4-1.0); POTASSIUM 3.6 mmol/L (3.5-5.0)
--- NOTE | 2020-11-25 09:16 | PROVIDER PROGRESS NOTE ---
Subjective - Prog Note Date Prog Note Date: 11/25/20 Prog Note Time: 08:30 - Subjective Pt reports feeling: Improved Subjective: Pt slept well throughout the night according to RN. Patient was able to tolerate breakfast. She is feeling much better after the 2nd unit of blood.She was informed she is probably going to need surgery and it will probably not be on [place]. She was informed that her Hgb has improved, but is still borderline at 7.1. She understands she will probably have to stay another night, receive another transfusion unit, and have labs continued to be monitored. She is pleasant, comfortable, and not having any pain at this time. She has no additional needs at this time. Current Medications - Current Medications Current Medications: Active Medications Acetaminophen (Acetaminophen 325 Mg Tablet) 650 mg PO Q4HR PRN PRN Reason: Pain or Fever > 38C (100.4F) Last Admin: 11/25/20 00:26 Dose: 650 mg Documented by: Cyanocobalamin (Cyanocobalamin 500 Mcg Tablet) 500 mcg PO DAILY [facility] Sodium Chloride (Normal Saline 0.9%) 1,000 mls @ 100 mls/hr IV .Q10H [facility] Last Admin: 11/25/20 04:29 Dose: 100 mls/hr Documented by: Lorazepam (Lorazepam 2 Mg/Ml Vial) 1 mg IVP Q30M PRN; Protocol PRN Reason: CIWA >8 Ondansetron HCl (Ondansetron 4 Mg/2 Ml Vial) 4 mg IVP Q6HR PRN PRN Reason: Nausea / Vomiting Pantoprazole Sodium (Pantoprazole 40 Mg Vial) 40 mg IVP BID [facility] Last Admin: 11/24/20 20:41 Dose: 40 mg Documented by: Simethicone (Simethicone 40 Mg/0.6 Ml 30 Ml Bottle) 80 mg PO Q6HR PRN PRN Reason: Gas Sodium Chloride (Sodium Chloride Flush 0.9% 10 Ml Syringe) 10 ml IVP PRN PRN PRN Reason: NEEDED PER PROVIDER ORDERS Last Admin: 11/24/20 17:40 Dose: 10 ml Documented by: Sodium Chloride (Sodium Chloride Flush 0.9% 10 Ml Syringe) 10 ml IVP 0100,0900,1700 [facility] Last Admin: 11/24/20 23:42 Dose: 10 ml Documented by: Thiamine HCl (Thiamine 100 Mg Tablet) 100 mg PO DAILY [facility] Last Admin: 11/24/20 08:06 Dose: 100 mg Documented by: Witch Kaci/Glycerin (Witch Kaci/Glycerin 1 Pad) 1 pad TOP PRN PRN PRN Reason: ITCHING Lisinopril [Zestril] 10 mg PO DAILY 11/23/20 Montelukast [Singulair] 10 mg PO DAILY 11/23/20 Objective - Vital Signs/Intake & Output Vital Signs: Vital Signs x48h Temp Pulse Resp BP Pulse Ox 11/25/20 08:18 37.0 C 86 20 114/61 98 11/25/20 04:49 36.8 C 80 18 129/54 L 96 Intake & Output: Intake & Output 11/22/20 11/23/20 11/24/20 11/25/20 23:59 23:59 23:59 23:59 Intake Total 4298.334 1028.333 Balance 4298.334 1028.333 - Objective General Appearance: positive: No acute distress, Alert, Other (Pleasant, answering questions appropriately) Eyes Bilateral: positive: PERRL, EOMI Neck: positive: No JVD, Trachea midline. negative: Lymphadenopathy (R), Lymphadenopathy (L) Respiratory: positive: Chest non-tender, No respiratory distress, Breath sounds nml Cardiovascular: positive: Regular rate & rhythm, No murmur, No gallop Peripheral Pulses: 1+ Dorsalis pedis (R), 1+ Dorsalis pedis (L), 2+ Radial (R), 2+ Radial (L) Abdomen: positive: Non-tender, Nml bowel sounds, No distention Skin: positive: Color nml, Warm, Dry Extremities: positive: Non-tender, Nml appearance, No pedal edema. negative: Calf tenderness Neurologic/Psychiatric: positive: Oriented x3, CN's nml (2-12), Motor nml, Sensation nml, Mood/affect nml - Lab Results Fish Bones: 11/25/20 04:41 11/25/20 04:41 Other Labs: Lab Results x24hrs 11/25/20 11/25/20 11/24/20 Range/Units 04:41 04:41 14:28 WBC 11.0 H 12.6 H (4.8-10.8) x10^3/uL RBC 2.35 L 2.22 L (4.20-5.40) 10^6/uL Hgb 7.1 L 6.7 L* (12.0-16.0) g/dL Hct 21.9 L 20.9 L (37.0-47.0) % MCV 93.2 94.1 (81.0-99.0) fL MCH 30.2 30.2 (27.0-31.0) pg MCHC 32.4 32.1 (32.0-36.0) g/dL RDW 17.6 H 18.3 H (12.0-15.0) % Plt Count 138 161 (130-450) 10^3/uL MPV 10.7 10.3 (7.9-10.8) fL Neut # (Auto) 7.4 H (1.5-6.6) 10^3/uL Lymph # (Auto) 2.6 (1.5-3.5) 10^3/uL [place] # (Auto) 0.7 (0.0-1.0) 10^3/uL Eos # (Auto) 0.1 (0.0-0.7) 10^3/uL Baso # (Auto) 0.0 (0.0-0.1) 10^3/uL Absolute Nucleated RBC 0.05 x10^3/uL Nucleated RBC % 0.5 /100WBC Sodium 141 (135-145) mmol/L Potassium 3.6 (3.5-5.0) mmol/L Chloride 112 H (101-111) mmol/L Carbon Dioxide 23 (21-32) mmol/L Anion Gap 6.0 (6-13) BUN 19 (6-20) mg/dL Creatinine 0.7 (0.4-1.0) mg/dL Estimated GFR (MDRD) 82 L (>89) Glucose 108 H (70-100) mg/dL Calcium 7.4 L (8.5-10.3) mg/dL Blood Type Antibody Screen Crossmatch IS Only 11/24/20 Range/Units 00:16 WBC (4.8-10.8) x10^3/uL RBC (4.20-5.40) 10^6/uL Hgb (12.0-16.0) g/dL Hct (37.0-47.0) % MCV (81.0-99.0) fL MCH (27.0-31.0) pg MCHC (32.0-36.0) g/dL RDW (12.0-15.0) % Plt Count (130-450) 10^3/uL MPV (7.9-10.8) fL Neut # (Auto) (1.5-6.6) 10^3/uL Lymph # (Auto) (1.5-3.5) 10^3/uL [place] # (Auto) (0.0-1.0) 10^3/uL Eos # (Auto) (0.0-0.7) 10^3/uL Baso # (Auto) (0.0-0.1) 10^3/uL Absolute Nucleated RBC x10^3/uL Nucleated RBC % /100WBC Sodium (135-145) mmol/L Potassium (3.5-5.0) mmol/L Chloride (101-111) mmol/L Carbon Dioxide (21-32) mmol/L Anion Gap (6-13) BUN (6-20) mg/dL Creatinine (0.4-1.0) mg/dL Estimated GFR (MDRD) (>89) Glucose (70-100) mg/dL Calcium (8.5-10.3) mg/dL Blood Type A POSITIVE Antibody Screen NEGATIVE Crossmatch IS Only See Detail ABX Reporting Has patient been on IV antibiotics over the past 48 hours?: No Assessment/Plan - Problem List (1) GI bleeding Impression: Impression: Conclusion/Plan: Upper GI Bleed suspected Dr. Antunez performed upper endoscopy this yesterday 11/24. Surgical record mentioned multiple lesions in 2nd portion of duodenum.Likely the cause of the bleed. Still awaiting full surgical report. Protonix 40 mg IV twice daily ordered. IV hydration with normal saline at 100 mL/h. After the transfusion of her second unit her hgb was 7.1. While this is meeting the transfusion goal of >7hgb, it is not as high as was expected after a 2nd unit. With her hgb remaining at this level it is necessary to keep her on the unit for further treatment. Will order a hemagram lab test. Will continue to monitor BP/HR and labs. If her Hgb drops below 7... will order another unit for transfusion. Qualifiers: GI bleed type/associated pathology: melena Qualified Code(s): K92.1 - Melena (2) Alcohol abuse Conclusion/Plan: Patient drinks 3-4 drinks which contain rum daily. She last drank about 24 hours ago. CIWA protocol ordered. We will also check magnesium, phosphorus, vitamin B12 and folate. No changes as of 11/25. (3) Leukocytosis Conclusion/Plan: White blood cell count was 14 and has trended down to 13.3, 12.6, and is currently 11. This is indicates that it is most likely reactive. We will continue to monitor. (4) Tachycardia Conclusion/Plan: RESOLVED: After fluid rehydration and transfusion of 1 unit the patients tachycardia has resolved. Her HR has stayed in the range of 80-90 BMP. No change as of 11/25 (5) Hypertension Conclusion/Plan: Patients blood pressure remains in the 110-130 systolic range. Will continue to hold off on patients lisinopril. We will resume lisinopril once patient's underlying problem has been addressed Qualifiers: GI bleed type/associated pathology: melena Qualified Code(s): K92.1 - Melena Qualifiers: GI bleed type/associated pathology: melena Qualified Code(s): K92.1 - Melena
[2020-11-25] MEDS: SODIUM CHLORIDE FLUSH 0.9% 10 ML SYRINGE IVP SCH ×2 (09:37→16:01)
[2020-11-25] MEDS: PANTOPRAZOLE 40 MG VIAL IVP SCH ×2 (09:37→20:28)
[2020-11-25] MEDS: THIAMINE 100 MG TABLET PO SCH (09:39)
[2020-11-25] MEDS: CYANOCOBALAMIN 500 MCG TABLET PO SCH (09:39)
[2020-11-25 11:07] LABS: HCT - HEMATOCRIT 22.6 % (37.0-47.0); HGB - HEMOGLOBIN 7.2 g/dL (12.0-16.0); MEAN CORPUSCULAR HEMOGLOBIN 29.9 pg (27.0-31.0); MEAN CORPUSCULAR HGB CONC 31.9 g/dL (32.0-36.0); MEAN CORPUSCULAR VOLUME 93.8 fL (81.0-99.0); MEAN PLATELET VOLUME 11.1 fL (7.9-10.8); RED BLOOD COUNT 2.41 10^6/uL (4.20-5.40); RED CELL DISTRIBUTION WIDTH 17.7 % (12.0-15.0); WHITE BLOOD COUNT 10.5 x10^3/uL (4.8-10.8)
[2020-11-25] MEDS: SODIUM CHLORIDE FLUSH 0.9% 10 ML SYRINGE IVP PRN (20:28)
[2020-11-26] MEDS: SODIUM CHLORIDE FLUSH 0.9% 10 ML SYRINGE IVP SCH ×4 (00:11→21:09)
[2020-11-26] MEDS: SODIUM CHLORIDE 0.9% 1,000 ML IV SCH (00:12)
[2020-11-26 06:10] LABS: BASOPHILS % (AUTO) 0.5 %; EOSINOPHILS # (AUTO) 0.1 10^3/uL (0.0-0.7); EOSINOPHILS % (AUTO) 1.6 %; HCT - HEMATOCRIT 21.7 % (37.0-47.0); LYMPHOCYTES # (AUTO) 1.9 10^3/uL (1.5-3.5); LYMPHOCYTES % (AUTO) 22.3 %; MEAN CORPUSCULAR HEMOGLOBIN 30.4 pg (27.0-31.0); MEAN CORPUSCULAR HGB CONC 31.8 g/dL (32.0-36.0); MEAN CORPUSCULAR VOLUME 95.6 fL (81.0-99.0); MEAN PLATELET VOLUME 10.9 fL (7.9-10.8); MONOCYTES # (AUTO) 0.5 10^3/uL (0.0-1.0); MONOCYTES % (AUTO) 5.8 %; NEUTROPHILS # (AUTO) 5.6 10^3/uL (1.5-6.6); NEUTROPHILS % (AUTO) 67.3 %; NRBC ABSOLUTE COUNT (AUTO) 0.09 x10^3/uL; NUCLEATED RED BLOOD CELLS AUTO 1.1 /100WBC; PLT - PLATELET COUNT 160 10^3/uL (130-450); RED BLOOD COUNT 2.27 10^6/uL (4.20-5.40); RED CELL DISTRIBUTION WIDTH 17.7 % (12.0-15.0); WHITE BLOOD COUNT 8.3 x10^3/uL (4.8-10.8)
[2020-11-26 06:16] LABS: CALCIUM 7.6 mg/dL (8.5-10.3); CREATININE 0.7 mg/dL (0.4-1.0); POTASSIUM 3.2 mmol/L (3.5-5.0)
[2020-11-26 06:26] LABS: HGB - HEMOGLOBIN 6.9 g/dL (12.0-16.0)
[2020-11-26] MEDS ORDERED: POTASSIUM CHLORIDE 20 MEQ TABLET PO ONE (08:00)
--- NOTE | 2020-11-26 08:16 | PROVIDER PROGRESS NOTE ---
Subjective - Prog Note Date Prog Note Date: 11/26/20 Prog Note Time: 08:12 - Subjective Pt reports feeling: No change Subjective: This morning pts Hgb dipped to 6.9. She noticed some more blood in her stool this morning. She continues to look pale. Upon entering the room she is alert and oriented. She answers questions appropriately. She was informed of the plan to receive another unit of blood. She is resting comfortably and other than desiring some green tea has no additional needs at this time. Current Medications - Current Medications Current Medications: Active Medications Acetaminophen (Acetaminophen 325 Mg Tablet) 650 mg PO Q4HR PRN PRN Reason: Pain or Fever > 38C (100.4F) Last Admin: 11/25/20 00:26 Dose: 650 mg Documented by: Cyanocobalamin (Cyanocobalamin 500 Mcg Tablet) 500 mcg PO DAILY [facility] Last Admin: 11/25/20 09:39 Dose: 500 mcg Documented by: Lisinopril (Lisinopril 5 Mg Tablet) 10 mg PO DAILY [facility] Lorazepam (Lorazepam 2 Mg/Ml Vial) 1 mg IVP Q30M PRN; Protocol PRN Reason: CIWA >8 Montelukast Sodium (Montelukast 10 Mg Tablet) 10 mg PO QPM [facility] Ondansetron HCl (Ondansetron 4 Mg/2 Ml Vial) 4 mg IVP Q6HR PRN PRN Reason: Nausea / Vomiting Pantoprazole Sodium (Pantoprazole 40 Mg Vial) 40 mg IVP BID [facility] Last Admin: 11/25/20 20:28 Dose: 40 mg Documented by: Simethicone (Simethicone 40 Mg/0.6 Ml 30 Ml Bottle) 80 mg PO Q6HR PRN PRN Reason: Gas Sodium Chloride (Sodium Chloride Flush 0.9% 10 Ml Syringe) 10 ml IVP PRN PRN PRN Reason: NEEDED PER PROVIDER ORDERS Last Admin: 11/25/20 20:28 Dose: 10 ml Documented by: Sodium Chloride (Sodium Chloride Flush 0.9% 10 Ml Syringe) 10 ml IVP 0100,0900,1700 [facility] Last Admin: 11/26/20 00:11 Dose: Not Given Documented by: Thiamine HCl (Thiamine 100 Mg Tablet) 100 mg PO DAILY [facility] Last Admin: 11/25/20 09:39 Dose: 100 mg Documented by: Witch Kaci/Glycerin (Witch Kaci/Glycerin 1 Pad) 1 pad TOP PRN PRN PRN Reason: ITCHING Lisinopril [Zestril] 10 mg PO DAILY 11/23/20 Montelukast [Singulair] 10 mg PO DAILY 11/23/20 Objective - Vital Signs/Intake & Output Vital Signs: Vital Signs x48h Temp Pulse Resp BP Pulse Ox 11/26/20 07:55 36.6 C 79 18 141/71 H 95 11/26/20 04:49 36.9 C 85 17 154/72 H 96 11/26/20 00:34 36.9 C 84 19 154/73 H 98 Intake & Output: Intake & Output 11/23/20 11/24/20 11/25/20 11/26/20 23:59 23:59 23:59 23:59 Intake Total 4298.334 2818.333 1020 Balance 4298.334 2818.333 1020 - Objective General Appearance: positive: No acute distress Eyes Bilateral: positive: PERRL, EOMI Neck: positive: No JVD, Trachea midline Respiratory: positive: Breath sounds nml Cardiovascular: positive: Regular rate & rhythm, No gallop. negative: No murmur Abdomen: positive: Non-tender, Nml bowel sounds Skin: positive: Warm, Dry, Pallor (Looks pale) Extremities: positive: Nml appearance, No pedal edema Neurologic/Psychiatric: positive: Oriented x3, CN's nml (2-12), Motor nml, Sensation nml, Mood/affect nml - Lab Results Fish Bones: 11/26/20 05:12 11/26/20 05:12 Other Labs: Lab Results x24hrs 11/26/20 11/26/20 11/25/20 Range/Units 05:12 05:12 11:02 WBC 8.3 10.5 (4.8-10.8) x10^3/uL RBC 2.27 L 2.41 L (4.20-5.40) 10^6/uL Hgb 6.9 L* 7.2 L (12.0-16.0) g/dL Hct 21.7 L 22.6 L (37.0-47.0) % MCV 95.6 93.8 (81.0-99.0) fL MCH 30.4 29.9 (27.0-31.0) pg MCHC 31.8 L 31.9 L (32.0-36.0) g/dL RDW 17.7 H 17.7 H (12.0-15.0) % Plt Count 160 117 L (130-450) 10^3/uL MPV 10.9 H 11.1 H (7.9-10.8) fL Neut # (Auto) 5.6 (1.5-6.6) 10^3/uL Lymph # (Auto) 1.9 (1.5-3.5) 10^3/uL Gem # (Auto) 0.5 (0.0-1.0) 10^3/uL Eos # (Auto) 0.1 (0.0-0.7) 10^3/uL Baso # (Auto) 0.0 (0.0-0.1) 10^3/uL Absolute Nucleated RBC 0.09 x10^3/uL Nucleated RBC % 1.1 /100WBC Sodium 140 (135-145) mmol/L Potassium 3.2 L (3.5-5.0) mmol/L Chloride 112 H (101-111) mmol/L Carbon Dioxide 20 L (21-32) mmol/L Anion Gap 8.0 (6-13) BUN 10 (6-20) mg/dL Creatinine 0.7 (0.4-1.0) mg/dL Estimated GFR (MDRD) 82 L (>89) Glucose 107 H (70-100) mg/dL Calcium 7.6 L (8.5-10.3) mg/dL ABX Reporting Has patient been on IV antibiotics over the past 48 hours?: No Assessment/Plan - Problem List (1) GI bleeding Impression: (1) GI bleeding Impression: Impression: Conclusion/Plan: Upper GI Bleed suspected Dr. Antunez performed upper endoscopy 11/24. Surgical record mentioned multiple les ions in 2nd portion of duodenum.Likely the cause of the bleed. Still awaiting full surgical report. Protonix 40 mg IV twice daily ordered. Has continued to receive fluids during her stay. Will reduce fluid volume. Pts hgb was initially trending up. 7.1 to 7.2 over night. This morning her hgb is 6.9. This puts her below the goal of >7. Will transfuse one unit. Will continue to monitor BP/HR and labs. Will order another CBC to be drawn in 6 hours. Qualifiers: GI bleed type/associated pathology: melena Qualified Code(s): K92.1 - Melena (2) Alcohol abuse Conclusion/Plan: Patient drinks 3-4 drinks which contain rum daily. She last drank about 24 hours ago. CIWA protocol ordered. Her B12 is reduced at 154 with a normal folate level. Will continue to monitor. She will continue to receive Thiamine and Folate during her stay. (3) Leukocytosis Conclusion/Plan: RESOLVED:White blood cell count was 11 on 11/25. The WBC count has trended down to 10.5 and then recently(08) 8.3. Her leukocytosis which is thought to be reactive has resolved. (4) Tachycardia Conclusion/Plan: RESOLVED: After fluid rehydration and transfusion the patients tachycardia has resolved. Her HR has stayed in the range of 80-90 BMP. No change as of 11/26 (5) Hypertension Conclusion/Plan: Patients blood pressure has trended up and stayed in the 150s systolic. Will resume her daily lisinopril at this time since her vital signs and volume status are stable. Qualifiers: GI bleed type/associated pathology: melena Qualified Code(s): K92.1 - Melena Qualifiers: GI bleed type/associated pathology: melena Qualified Code(s): K92.1 - Melena Qualifiers: GI bleed type/associated pathology: melena Qualified Code(s): K92.1 - Melena
[2020-11-26] MEDS: lisinopriL 5 MG TABLET PO SCH (08:50)
[2020-11-26] MEDS: CYANOCOBALAMIN 500 MCG TABLET PO SCH (08:50)
[2020-11-26] MEDS: PANTOPRAZOLE 40 MG VIAL IVP SCH ×2 (08:50→21:10)
[2020-11-26] MEDS: THIAMINE 100 MG TABLET PO SCH (08:50)
[2020-11-26 13:57] LABS: HCT - HEMATOCRIT 26.1 % (37.0-47.0); HGB - HEMOGLOBIN 8.6 g/dL (12.0-16.0)
[2020-11-26 19:33] LABS: HCT - HEMATOCRIT 27.2 % (37.0-47.0); HGB - HEMOGLOBIN 9.1 g/dL (12.0-16.0)
[2020-11-26] MEDS ORDERED: MONTELUKAST 10 MG TABLET PO SCH (21:00)
[2020-11-27 05:49] LABS: BASOPHILS % (AUTO) 0.5 %; EOSINOPHILS # (AUTO) 0.2 10^3/uL (0.0-0.7); EOSINOPHILS % (AUTO) 2.5 %; HCT - HEMATOCRIT 24.7 % (37.0-47.0); HGB - HEMOGLOBIN 8.2 g/dL (12.0-16.0); LYMPHOCYTES # (AUTO) 1.4 10^3/uL (1.5-3.5); LYMPHOCYTES % (AUTO) 17.2 %; MEAN CORPUSCULAR HEMOGLOBIN 31.1 pg (27.0-31.0); MEAN CORPUSCULAR HGB CONC 33.2 g/dL (32.0-36.0); MEAN CORPUSCULAR VOLUME 93.6 fL (81.0-99.0); MONOCYTES # (AUTO) 0.6 10^3/uL (0.0-1.0); MONOCYTES % (AUTO) 7.6 %; NEUTROPHILS # (AUTO) 5.8 10^3/uL (1.5-6.6); NEUTROPHILS % (AUTO) 70.4 %; NRBC ABSOLUTE COUNT (AUTO) 0.07 x10^3/uL; NUCLEATED RED BLOOD CELLS AUTO 0.8 /100WBC; PLT - PLATELET COUNT 183 10^3/uL (130-450); RED BLOOD COUNT 2.64 10^6/uL (4.20-5.40); RED CELL DISTRIBUTION WIDTH 17.4 % (12.0-15.0); WHITE BLOOD COUNT 8.2 x10^3/uL (4.8-10.8)
[2020-11-27 06:00] LABS: CALCIUM 7.9 mg/dL (8.5-10.3); CREATININE 0.7 mg/dL (0.4-1.0); POTASSIUM 3.5 mmol/L (3.5-5.0)
--- NOTE | 2020-11-27 08:07 | PROVIDER PROGRESS NOTE ---
Subjective - Subjective Pt reports feeling: No change (She feels well. She has history of early satiety for months. More recently she has had black tarry stool and has been anemic) Objective - Vital Signs/Intake & Output Reviewed Vital Signs: Yes Vital Signs: Vital Signs x48h Temp Pulse Resp BP Pulse Ox 11/27/20 07:30 36.6 C 82 18 142/68 H 97 11/27/20 05:00 37 C 84 18 135/70 H 97 Intake & Output: Intake & Output 11/24/20 11/25/20 11/26/20 11/27/20 23:59 23:59 23:59 23:59 Intake Total 4298.334 2818.333 4020 Output Total 100 Balance 4298.334 2818.333 3920 - Objective General Appearance: positive: No acute distress, Alert Eyes Bilateral: positive: PERRL, EOMI, No scleral icterus ENT: positive: No signs of dehydration Neck: positive: No JVD Respiratory: positive: No respiratory distress Abdomen: positive: Non-tender, No distention Neurologic/Psychiatric: positive: Oriented x3 - Lab Results Fish Bones: 11/27/20 05:24 11/27/20 05:24 Other Labs: Lab Results x24hrs 11/27/20 11/27/20 11/26/20 Range/Units 05:24 05:24 19:17 WBC 8.2 (4.8-10.8) x10^3/uL RBC 2.64 L (4.20-5.40) 10^6/uL Hgb 8.2 L 9.1 L (12.0-16.0) g/dL Hct 24.7 L 27.2 L (37.0-47.0) % MCV 93.6 (81.0-99.0) fL MCH 31.1 H (27.0-31.0) pg MCHC 33.2 (32.0-36.0) g/dL RDW 17.4 H (12.0-15.0) % Plt Count 183 (130-450) 10^3/uL MPV 11.0 H (7.9-10.8) fL Neut # (Auto) 5.8 (1.5-6.6) 10^3/uL Lymph # (Auto) 1.4 L (1.5-3.5) 10^3/uL [place] # (Auto) 0.6 (0.0-1.0) 10^3/uL Eos # (Auto) 0.2 (0.0-0.7) 10^3/uL Baso # (Auto) 0.0 (0.0-0.1) 10^3/uL Absolute Nucleated RBC 0.07 x10^3/uL Nucleated RBC % 0.8 /100WBC Sodium 142 (135-145) mmol/L Potassium 3.5 (3.5-5.0) mmol/L Chloride 111 (101-111) mmol/L Carbon Dioxide 20 L (21-32) mmol/L Anion Gap 11.0 (6-13) BUN 9 (6-20) mg/dL Creatinine 0.7 (0.4-1.0) mg/dL Estimated GFR (MDRD) 82 L (>89) Glucose 108 H (70-100) mg/dL Calcium 7.9 L (8.5-10.3) mg/dL Blood Type Antibody Screen Crossmatch IS Only 11/26/20 11/26/20 Range/Units 13:52 07:48 WBC (4.8-10.8) x10^3/uL RBC (4.20-5.40) 10^6/uL Hgb 8.6 L (12.0-16.0) g/dL Hct 26.1 L (37.0-47.0) % MCV (81.0-99.0) fL MCH (27.0-31.0) pg MCHC (32.0-36.0) g/dL RDW (12.0-15.0) % Plt Count (130-450) 10^3/uL MPV (7.9-10.8) fL Neut # (Auto) (1.5-6.6) 10^3/uL Lymph # (Auto) (1.5-3.5) 10^3/uL [place] # (Auto) (0.0-1.0) 10^3/uL Eos # (Auto) (0.0-0.7) 10^3/uL Baso # (Auto) (0.0-0.1) 10^3/uL Absolute Nucleated RBC x10^3/uL Nucleated RBC % /100WBC Sodium (135-145) mmol/L Potassium (3.5-5.0) mmol/L Chloride (101-111) mmol/L Carbon Dioxide (21-32) mmol/L Anion Gap (6-13) BUN (6-20) mg/dL Creatinine (0.4-1.0) mg/dL Estimated GFR (MDRD) (>89) Glucose (70-100) mg/dL Calcium (8.5-10.3) mg/dL Blood Type A POSITIVE Antibody Screen NEGATIVE Crossmatch IS Only See Detail Assessment/Plan - Problem List (1) Mass of duodenum Impression: She has a 1/2 circumferential mass of the duodenum that continues to bleed. Biopsies came back benign. This is discussed with her. Given the ongoing bleeding she likely needs to have this addressed more urgently. I recommend she transfer to a facility that can offer a higher level of care ie medical transfer, gi consult for further work up, surgical oncology available for possible gastrectomy. This is also discussed with her. She is given a copy of her EGD report.
--- NOTE | 2020-11-27 08:36 | PROVIDER PROGRESS NOTE ---
<Bassem Florez - Last Filed: 11/27/20 08:57> Subjective - Prog Note Date Prog Note Date: 11/27/20 Prog Note Time: 08:36 - Subjective Pt reports feeling: Improved Subjective: Pts hgb looking better at 9.1 last night and 8.2 this morning. [facility] was consulted yesterday and it was decided to continue to water her hgb today. Her biopsy results came back negative for metastasis(see biopsy results in Assesment/Plan). She was informed of her current lab values looking better and the biopsy results. She feels relieved. Expectations were set about the current biopsy results. She has a daughter coming up today to help assist her in taking care of her house and dog. She is sitting up in bed eating breakfast. She states she had one Melena BM last night at approximately 0300. She is looking less pale and she mentions she feels better. Vitals are stable. At this time she has no additional needs. Current Medications - Current Medications Current Medications: Active Medications Acetaminophen (Acetaminophen 325 Mg Tablet) 650 mg PO Q4HR PRN PRN Reason: Pain or Fever > 38C (100.4F) Last Admin: 11/25/20 00:26 Dose: 650 mg Documented by: Cyanocobalamin (Cyanocobalamin 500 Mcg Tablet) 500 mcg PO DAILY [facility] Last Admin: 11/26/20 08:50 Dose: 500 mcg Documented by: Lisinopril (Lisinopril 5 Mg Tablet) 10 mg PO DAILY [facility] Last Admin: 11/26/20 08:50 Dose: 10 mg Documented by: Lorazepam (Lorazepam 2 Mg/Ml Vial) 1 mg IVP Q30M PRN; Protocol PRN Reason: CIWA >8 Montelukast Sodium (Montelukast 10 Mg Tablet) 10 mg PO QPM [facility] Last Admin: 11/26/20 21:09 Dose: 10 mg Documented by: Ondansetron HCl (Ondansetron 4 Mg/2 Ml Vial) 4 mg IVP Q6HR PRN PRN Reason: Nausea / Vomiting Pantoprazole Sodium (Pantoprazole 40 Mg Vial) 40 mg IVP BID [facility] Last Admin: 11/26/20 21:10 Dose: 40 mg Documented by: Simethicone (Simethicone 40 Mg/0.6 Ml 30 Ml Bottle) 80 mg PO Q6HR PRN PRN Reason: Gas Sodium Chloride (Sodium Chloride Flush 0.9% 10 Ml Syringe) 10 ml IVP PRN PRN PRN Reason: NEEDED PER PROVIDER ORDERS Last Admin: 11/25/20 20:28 Dose: 10 ml Documented by: Sodium Chloride (Sodium Chloride Flush 0.9% 10 Ml Syringe) 10 ml IVP 0100,0900,1700 [facility] Last Admin: 11/26/20 21:09 Dose: 10 ml Documented by: Thiamine HCl (Thiamine 100 Mg Tablet) 100 mg PO DAILY [facility] Last Admin: 11/26/20 08:50 Dose: 100 mg Documented by: Witch Kaci/Glycerin (Witch Kaci/Glycerin 1 Pad) 1 pad TOP PRN PRN PRN Reason: ITCHING Lisinopril [Zestril] 10 mg PO DAILY 11/23/20 Montelukast [Singulair] 10 mg PO DAILY 11/23/20 Objective - Vital Signs/Intake & Output Vital Signs: Vital Signs x48h Temp Pulse Resp BP Pulse Ox 11/27/20 07:30 36.6 C 82 18 142/68 H 97 11/27/20 05:00 37 C 84 18 135/70 H 97 Intake & Output: Intake & Output 11/24/20 11/25/20 11/26/20 11/27/20 23:59 23:59 23:59 23:59 Intake Total 4298.334 2818.333 4020 Output Total 100 Balance 4298.334 2818.333 3920 - Objective General Appearance: positive: No acute distress Eyes Bilateral: positive: PERRL, EOMI Neck: positive: No JVD, Trachea midline. negative: Lymphadenopathy (R), Lymphadenopathy (L) Respiratory: positive: No respiratory distress, Breath sounds nml Cardiovascular: positive: Regular rate & rhythm. negative: No murmur (Pt states she has murmur. It was not discernable on my physical exam.), No gallop Peripheral Pulses: 1+ Radial (R), 1+ Radial (L), 1+ Dorsalis pedis (R), 1+ Dorsalis pedis (L) Abdomen: positive: Non-tender, Nml bowel sounds Skin: positive: Warm, Dry Extremities: positive: Non-tender, Nml appearance, No pedal edema. negative: Calf tenderness Neurologic/Psychiatric: positive: Oriented x3, CN's nml (2-12), Motor nml, Sensation nml, Mood/affect nml - Lab Results Fish Bones: 11/27/20 05:24 11/27/20 05:24 Other Labs: Lab Results x24hrs 11/27/20 11/27/20 11/26/20 Range/Units 05:24 05:24 19:17 WBC 8.2 (4.8-10.8) x10^3/uL RBC 2.64 L (4.20-5.40) 10^6/uL Hgb 8.2 L 9.1 L (12.0-16.0) g/dL Hct 24.7 L 27.2 L (37.0-47.0) % MCV 93.6 (81.0-99.0) fL MCH 31.1 H (27.0-31.0) pg MCHC 33.2 (32.0-36.0) g/dL RDW 17.4 H (12.0-15.0) % Plt Count 183 (130-450) 10^3/uL MPV 11.0 H (7.9-10.8) fL Neut # (Auto) 5.8 (1.5-6.6) 10^3/uL Lymph # (Auto) 1.4 L (1.5-3.5) 10^3/uL [place] # (Auto) 0.6 (0.0-1.0) 10^3/uL Eos # (Auto) 0.2 (0.0-0.7) 10^3/uL Baso # (Auto) 0.0 (0.0-0.1) 10^3/uL Absolute Nucleated RBC 0.07 x10^3/uL Nucleated RBC % 0.8 /100WBC Sodium 142 (135-145) mmol/L Potassium 3.5 (3.5-5.0) mmol/L Chloride 111 (101-111) mmol/L Carbon Dioxide 20 L (21-32) mmol/L Anion Gap 11.0 (6-13) BUN 9 (6-20) mg/dL Creatinine 0.7 (0.4-1.0) mg/dL Estimated GFR (MDRD) 82 L (>89) Glucose 108 H (70-100) mg/dL Calcium 7.9 L (8.5-10.3) mg/dL Blood Type Antibody Screen Crossmatch IS Only 11/26/20 11/26/20 Range/Units 13:52 07:48 WBC (4.8-10.8) x10^3/uL RBC (4.20-5.40) 10^6/uL Hgb 8.6 L (12.0-16.0) g/dL Hct 26.1 L (37.0-47.0) % MCV (81.0-99.0) fL MCH (27.0-31.0) pg MCHC (32.0-36.0) g/dL RDW (12.0-15.0) % Plt Count (130-450) 10^3/uL MPV (7.9-10.8) fL Neut # (Auto) (1.5-6.6) 10^3/uL Lymph # (Auto) (1.5-3.5) 10^3/uL [place] # (Auto) (0.0-1.0) 10^3/uL Eos # (Auto) (0.0-0.7) 10^3/uL Baso # (Auto) (0.0-0.1) 10^3/uL Absolute Nucleated RBC x10^3/uL Nucleated RBC % /100WBC Sodium (135-145) mmol/L Potassium (3.5-5.0) mmol/L Chloride (101-111) mmol/L Carbon Dioxide (21-32) mmol/L Anion Gap (6-13) BUN (6-20) mg/dL Creatinine (0.4-1.0) mg/dL Estimated GFR (MDRD) (>89) Glucose (70-100) mg/dL Calcium (8.5-10.3) mg/dL Blood Type A POSITIVE Antibody Screen NEGATIVE Crossmatch IS Only See Detail - Other Results/Comments Other Results/Comments: Biopsy results reviewed. See Pathology report. ABX Reporting Has patient been on IV antibiotics over the past 48 hours?: No Assessment/Plan - Problem List (1) GI bleeding Impression: Upper GI Bleed confirmed Dr. Antunez performed upper endoscopy 11/24. Surgical record mentioned multiple lesions in 2nd portion of duodenum.Likely the cause of the bleed. Still awaiting full surgical report. Protonix 40 mg IV twice daily ordered. Has continued to receive fluids during her stay. Pts hgb 9.1 last night and 8.2 this morning. Will continue to monitor. Will hold transfusion units. She is looking less pale and feeling better. She is hemodynamically stable. Not showing any signs of acute hemorrhage. No new physical exam findings. Biopsy results were negative for malignancy. They showed findings consistent with peptic injury. Were negative for celiac sprue, H. Pylori, and dysplasia. In discussion with , she is not in need of immediate transfer to there facility at this time. Will continue to monitor hgb. If it continues to remain stable she can probably be managed in the outpatient setting. Will continue to monitor BP/HR and labs. Will order another CBC to be drawn this afternoon. Qualifiers: GI bleed type/associated pathology: melena Qualified Code(s): K92.1 - Melena (2) Alcohol abuse Conclusion/Plan: Patient drinks 3-4 drinks which contain rum daily. She last drank about 24 hours ago. CIWA protocol ordered. She will continue to receive Thiamine and Folate during her stay. Stable 11/27 (3) Leukocytosis Conclusion/Plan: RESOLVED:White blood cell count was 11 on 11/25. The WBC count has trended down to 10.5 and then recently(0825) 8.3. Her leukocytosis which is thought to be reactive has resolved. Stable 11/27 (4) Tachycardia Conclusion/Plan: RESOLVED: After fluid rehydration and transfusion the patients tachycardia has resolved. Her HR has stayed in the range of 80-90 BMP. No change as of 11/27 (5) Hypertension Conclusion/Plan: Patients blood pressure has stayed in the 140s systolic. She continues to take her lisinopril. At this time since her vital signs and volume status are stable. Continue current therapy. Qualifiers: GI bleed type/associated pathology: melena Qualified Code(s): K92.1 - Melena <Mulu Ríos L - Last Filed: 11/27/20 15:36> Objective - Vital Signs/Intake & Output Vital Signs: Vital Signs x48h Temp Pulse Resp BP Pulse Ox 11/27/20 11:30 36.9 C 69 18 147/77 H 97 Intake & Output: Intake & Output 11/24/20 11/25/20 11/26/20 11/27/20 23:59 23:59 23:59 23:59 Intake Total 4298.334 2818.333 4020 1120 Output Total 100 1 Balance 4298.334 2818.333 3920 1119 - Lab Results Fish Bones: 11/27/20 11:03 11/27/20 05:24 Other Labs: Lab Results x24hrs 11/27/20 11/27/20 11/27/20 Range/Units 11:03 05:24 05:24 WBC 8.2 (4.8-10.8) x10^3/uL RBC 2.64 L (4.20-5.40) 10^6/uL Hgb 9.0 L 8.2 L (12.0-16.0) g/dL Hct 27.7 L 24.7 L (37.0-47.0) % MCV 93.6 (81.0-99.0) fL MCH 31.1 H (27.0-31.0) pg MCHC 33.2 (32.0-36.0) g/dL RDW 17.4 H (12.0-15.0) % Plt Count 183 (130-450) 10^3/uL MPV 11.0 H (7.9-10.8) fL Neut # (Auto) 5.8 (1.5-6.6) 10^3/uL Lymph # (Auto) 1.4 L (1.5-3.5) 10^3/uL [place] # (Auto) 0.6 (0.0-1.0) 10^3/uL Eos # (Auto) 0.2 (0.0-0.7) 10^3/uL Baso # (Auto) 0.0 (0.0-0.1) 10^3/uL Absolute Nucleated RBC 0.07 x10^3/uL Nucleated RBC % 0.8 /100WBC Sodium 142 (135-145) mmol/L Potassium 3.5 (3.5-5.0) mmol/L Chloride 111 (101-111) mmol/L Carbon Dioxide 20 L (21-32) mmol/L Anion Gap 11.0 (6-13) BUN 9 (6-20) mg/dL Creatinine 0.7 (0.4-1.0) mg/dL Estimated GFR (MDRD) 82 L (>89) Glucose 108 H (70-100) mg/dL Calcium 7.9 L (8.5-10.3) mg/dL 11/26/20 Range/Units 19:17 WBC (4.8-10.8) x10^3/uL RBC (4.20-5.40) 10^6/uL Hgb 9.1 L (12.0-16.0) g/dL Hct 27.2 L (37.0-47.0) % MCV (81.0-99.0) fL MCH (27.0-31.0) pg MCHC (32.0-36.0) g/dL RDW (12.0-15.0) % Plt Count (130-450) 10^3/uL MPV (7.9-10.8) fL Neut # (Auto) (1.5-6.6) 10^3/uL Lymph # (Auto) (1.5-3.5) 10^3/uL [place] # (Auto) (0.0-1.0) 10^3/uL Eos # (Auto) (0.0-0.7) 10^3/uL Baso # (Auto) (0.0-0.1) 10^3/uL Absolute Nucleated RBC x10^3/uL Nucleated RBC % /100WBC Sodium (135-145) mmol/L Potassium (3.5-5.0) mmol/L Chloride (101-111) mmol/L Carbon Dioxide (21-32) mmol/L Anion Gap (6-13) BUN (6-20) mg/dL Creatinine (0.4-1.0) mg/dL Estimated GFR (MDRD) (>89) Glucose (70-100) mg/dL Calcium (8.5-10.3) mg/dL
[2020-11-27] MEDS: lisinopriL 5 MG TABLET PO SCH (08:43)
[2020-11-27] MEDS: THIAMINE 100 MG TABLET PO SCH (08:43)
[2020-11-27] MEDS: CYANOCOBALAMIN 500 MCG TABLET PO SCH (08:43)
[2020-11-27] MEDS: PANTOPRAZOLE 40 MG VIAL IVP SCH (08:44)
[2020-11-27] MEDS: SODIUM CHLORIDE FLUSH 0.9% 10 ML SYRINGE IVP SCH (08:44)
[2020-11-27] MEDS ORDERED: SIMETHICONE CHEW 80 MG TABLET PO PRN (09:53)
[2020-11-27 11:07] LABS: HCT - HEMATOCRIT 27.7 % (37.0-47.0)
[2020-11-27] MEDS ORDERED: PANTOPRAZOLE 40 MG TABLET PO SCH (16:00)
[2020-11-27 16:09] VITALS: BP 152/74
--- NOTE | 2020-11-27 16:11 | Discharge Plan ---
Discharge Plan Problem Reviewed?: Yes Disposition: Home, Self Care Condition: Fair Prescriptions: Pantoprazole [Protonix] 40 mg PO BIDAC #60 tablet Diet: Regular Activity Restrictions: Activity as Tolerated Shower Restrictions: No Driving Restrictions: No Health Concerns: You presented to the emergency room with complaints of dark tarry stools that have been going on for 24 hours on top of innumerable episodes of diarrhea. You also had a history of drinking, occasionally, 3-4 drinks a day containing rum. You do not take aspirin or nonsteroidals on a regular basis. We found you to have anemia as measured by hemoglobin. A normal hemoglobin is 12 to 16 g. Yours was 7.4. Over the next 3 days, we needed to transfuse 1 unit of packed red cells a day due to your anemia. You continue to have black tarry stools intermittently. You underwent an endoscopy with Dr. Jordyn Antunez and we found you to have a semicircumferential duodenal lesion. The pathology is come back as nonspecific peptic inflammation. Unfortunately this lesion is located in a difficult place to heal and if it continues to bleed you may need a very special type of surgery. Dr. Antunez feels that that surgery would be at either [facility] or [facility]. By November 27 your black tarry stools have slowed significantly. Your hemoglobin has been stable since November 26 in the morning. You are now 9 g of hemoglobin after 3 units transfused over 3 days. Your blood pressure and heart rate are stable. Plan of Treatment: 1. You will need to see Dr. Robles in follow-up. He is your primary care provider. He will need to refer you to either [facility] or [facility] gastroenterology department. Those are the hospitals that Dr. Antunez feels you should seek. 2. I am giving you a lab slip to have your hemoglobin and hemogram checked next Monday. 3. You cannot take any nonsteroidal therapy such as ibuprofen, Aleve, aspirin, Naprosyn, Celebrex, diclofenac, etc. You can only take Tylenol for pain or fever. Nonsteroidals will make your bleeding worse. 4. I would like you to take an acid reducing pill that will help heal any inflammation in your stomach. That would be Protonix twice a day for the next month. After that your GI doctor may stop it completely. Care Goals: To not have further bleeding. Hopefully have a small procedure done as opposed to a large procedure. Assessment: Patient understands care goals and will follow through with follow-up appointments, CBC, and getting a referral to the appropriate specialist. No Smoking: If you smoke, Please STOP! Call for help. Follow-up with: Carlos Robles MD [Credentialed Staff Provider] -
--- NOTE | 2020-11-27 16:31 | DISCHARGE SUMMARY ---
"Discharge Summary Admit Date: 11/24/20 Discharge Date: 11/27/20 Discharging Provider: Mulu Ríos MD Primary Care Provider: Gómez Robles MD Code Status: Attempt Resuscitation Condition at Discharge: Fair Discharge Disposition: 01 Home, Self Care - DIAGNOSES Discharge Diagnoses with Status of Each Condition: 1. Upper GI bleeding 2. Acute blood loss anemia 3. History of alcohol abuse 4. Mass of duodenum 5. Leukocytosis 6. Hypertension 7. Microscopic colitis - HPI History of Present Illness: Patient is a 70-year-old female who presented to the ED with complaint of multiple dark tarry stools. This has been going on for the past 24 hours. She reports dizziness, lightheadedness, abdominal ache, nausea and nonbloody vomiting. She denied difficulty in breathing or chest pain. She denies any previous occurrence of similar symptoms. She last had an EGD and a colonoscopy about 10 years ago. She reports history of lymphocytic colitis. She reports drinking about 3-4 drinks which consist of rum daily. She last drank about 24 hours ago. In the ED she was noted to be tachycardic with heart rate between 100 and 115. Hemoglobin was 7.4. Dr. Jordyn Antunez with general surgery was contacted and is agreeable to see the patient in consult. The patient was administered a dose of Protonix IV and given some IV hydration and then presented for admission for further work-up and treatment. - Past Medical History Cardiovascular: reports: Hypertension Respiratory: reports: Asthma Endocrine/Autoimmune: reports: None GI: reports: Other (Lymphocytic colitis) SIPHON OPERATOR: reports: None : reports: None HEENT: reports: None Psych: reports: None Musculoskeletal: reports: None Derm: reports: None MRSA Hx?: No - Past Surgical History /SIPHON OPERATOR: reports: Tubal ligation, Oophrectomy - CONSULTS | PROCEDURES Procedures: 1. Esophagogastroduodenoscopy which showed a circumferential mass in the first part of the duodenum. Mucosa of stomach appeared normal. Esophagus was normal. Multiple biopsies performed. 2. Transfusion of 3 units of packed red cells - HOSPITAL COURSE Hospital Course: When she was brought into the hospital she was tachycardic, mildly hypotensive and having multiple episodes of melanotic stool. Over the course of the hospitalization the frequency of stool diminished. On the day of discharge she had a 3 AM and 9 AM small melanotic stool. Her hemoglobin was checked every day and needed to be transfused 3 times for drop in hemoglobin. After transfusion the morning of the , hemoglobin went from 6.9, to 8.6, to 9.1. And at discharge she was 9.0. Blood pressure was 152/74 and heart rate was 72. Treatment consisted of proton pump inhibitors. Are advised the patient was no more alcohol, no nonsteroidal therapy, and to complete 1 month of twice daily Protonix for the EGD findings of a half circumferential area/mass in the duodenum. Pathology was nonspecific with inflammatory peptic changes. H. pylori negative. General surgery feels that this may be sampling error. She will need a repeat endoscopy in the next 4 to 6 weeks. At that point in time it can be decided what type of surgery she would need if this is a malignancy. The patient is aware of the importance of following through to make sure this is not a malignancy.Because of the specific geographic area of this disease, general surgery feels that this patient should be seen by a tertiary care Medical Center. General surgery specifically mentions [facility] or [facility] because she knows of the surgeons who work there that would be able to handle this problem. I have asked her to follow through with her primary care provider in the next few days. I have ordered a CBC for December 02. If she has recurrence of melanotic stool and it is not an emergency, she has the choice of returning to our emergency room or seeing [facility].She is to com plete 1 month of therapy with twice daily Protonix. I have asked her to make sure she does not take any nonsteroidal therapy: Naprosyn, Aleve, ibuprofen, Celebrex, diclofenac, etc.I have also asked her to make sure that she does not return to drinking at all at this time. Leukocytosis was present during her stay but resolved without treatment for antibiotics. We were worried about alcohol withdrawal since she does occasional rum drinks but there is no evidence of alcohol withdrawal or delirium during her stay. She was treated with thiamine and folate. Blood pressure was initially low and slightly high by the time she was discharged. Exam at discharge Brayan is a very pleasant 5 foot female who weighs 80 kg. Beautifully dyed yojana hair. Pencils and eyebrows. Alert, oriented, lucid conversation. Lungs are clear to auscultation and percussion. Regular rate and rhythm with a soft lower sternal border murmur. Abdomen is soft, nontender, hypoactive bowel sounds. Nontender. Extremities are without edema. She is ambulatory in the room without assistance. Sitting up in her chair doing computer work. Greater than 30 minutes was spent coordinating discharge. - ALLERGIES Allergies/Adverse Reactions: Allergies Allergy/AdvReac Type Severity Reaction Status Date / Time iodine Allergy Itching Verified 11/23/20 23:27 - MEDICATIONS Home Medications: Ambulatory Orders Medication Instructions Recorded Confirmed Lisinopril [Zestril] 10 mg PO DAILY 11/23/20 11/23/20 Montelukast [Singulair] 10 mg PO DAILY 11/23/20 11/23/20 Pantoprazole [Protonix] 40 mg PO BIDAC #60 tablet 11/27/20 Thiamine [Vitamin B-1] 100 mg PO DAILY tablet 11/27/20 - LABS Result Diagrams: 11/27/20 11:03 11/27/20 05:24"
== END 2020-11-27 17:55 | disposition home or self-care (01) | DRG 378 ==
LOC: EDUNIT# → ED 23:18 → MS2 11-24 01:08 → OBSVTOIN 11-25 13:33
PROVIDERS: ADMIT Internal Medicine; ATTEND Specialist
PROC: 0DB68ZX Excision of Stomach, Via Natural or Artificial Opening Endoscopic, Diagnostic (ICD-10-PCS; 2020-11-24)
PROC: 0DB98ZX Excision of Duodenum, Via Natural or Artificial Opening Endoscopic, Diagnostic (ICD-10-PCS; principal; 2020-11-24 11:45)
PROC: 30233N1 Transfusion of Nonautologous Red Blood Cells into Peripheral Vein, Percutaneous Approach (ICD-10-PCS; 2020-11-26)
DX: K26.4 Chronic or unspecified duodenal ulcer with hemorrhage (principal); K29.71 Gastritis, unspecified, with bleeding; K52.832 Lymphocytic colitis; D62 Acute posthemorrhagic anemia; K29.51 Unspecified chronic gastritis with bleeding; K52.839 Microscopic colitis, unspecified; E86.9 Volume depletion, unspecified; I10 Essential (primary) hypertension; J45.909 Unspecified asthma, uncomplicated; F10.10 Alcohol abuse, uncomplicated; E66.9 Obesity, unspecified; Z20.822 Contact with and (suspected) exposure to COVID-19; Z68.34 Body mass index [BMI] 34.0-34.9, adult; F17.200 Nicotine dependence, unspecified, uncomplicated; D72.829 Elevated white blood cell count, unspecified; Z72.89 Other problems related to lifestyle; Z79.899 Other long term (current) drug therapy
CPT/HCPCS: 36415; 36430; 43239; 80048; 80053; 82272; 82607; 82746; 83690; 83735; 84100; 85014; 85018; 85025; 85027; 86850; 86900; 86901; 86920; 87631; 96374; 96376; 99284; 99285; A9270; G0378; P9016; 0202U; 82274

== ENCOUNTER 2020-12-02 15:06 | Outpatient (CLI) | payer MEDICARE ==
[2020-12-02 20:02] LABS: BASOPHILS # (AUTO) 0.1 10^3/uL (0.0-0.1); BASOPHILS % (AUTO) 0.8 %; EOSINOPHILS # (AUTO) 0.2 10^3/uL (0.0-0.7); EOSINOPHILS % (AUTO) 2.5 %; HCT - HEMATOCRIT 31.7 % (37.0-47.0); HGB - HEMOGLOBIN 9.8 g/dL (12.0-16.0); LYMPHOCYTES # (AUTO) 1.8 10^3/uL (1.5-3.5); LYMPHOCYTES % (AUTO) 24.5 %; MEAN CORPUSCULAR HEMOGLOBIN 29.7 pg (27.0-31.0); MEAN CORPUSCULAR HGB CONC 30.9 g/dL (32.0-36.0); MEAN CORPUSCULAR VOLUME 96.1 fL (81.0-99.0); MEAN PLATELET VOLUME 10.2 fL (7.9-10.8); MONOCYTES # (AUTO) 0.7 10^3/uL (0.0-1.0); MONOCYTES % (AUTO) 9.1 %; NEUTROPHILS # (AUTO) 4.5 10^3/uL (1.5-6.6); NEUTROPHILS % (AUTO) 62.7 %; PLT - PLATELET COUNT 439 10^3/uL (130-450); RED CELL DISTRIBUTION WIDTH 15.3 % (12.0-15.0); WHITE BLOOD COUNT 7.2 x10^3/uL (4.8-10.8)
== END 2020-12-02 15:07 | disposition home or self-care (01) ==
LOC: LAB.S 15:06
PROVIDERS: ATTEND Internal Medicine
DX: K92.2 Gastrointestinal hemorrhage, unspecified (principal)
CPT/HCPCS: 36415; 85025

== ENCOUNTER 2020-12-14 14:20 | Outpatient (CLI) | payer MEDICARE ==
[2020-12-14 19:49] LABS: BASOPHILS % (AUTO) 0.5 %; EOSINOPHILS # (AUTO) 0.1 10^3/uL (0.0-0.7); EOSINOPHILS % (AUTO) 1.6 %; HGB - HEMOGLOBIN 7.9 g/dL (12.0-16.0); LYMPHOCYTES # (AUTO) 1.6 10^3/uL (1.5-3.5); LYMPHOCYTES % (AUTO) 21.3 %; MEAN CORPUSCULAR HEMOGLOBIN 28.5 pg (27.0-31.0); MEAN CORPUSCULAR HGB CONC 30.4 g/dL (32.0-36.0); MEAN CORPUSCULAR VOLUME 93.9 fL (81.0-99.0); MEAN PLATELET VOLUME 10.6 fL (7.9-10.8); MONOCYTES # (AUTO) 0.4 10^3/uL (0.0-1.0); MONOCYTES % (AUTO) 4.9 %; NEUTROPHILS # (AUTO) 5.3 10^3/uL (1.5-6.6); NEUTROPHILS % (AUTO) 71.3 %; PLT - PLATELET COUNT 333 10^3/uL (130-450); RED BLOOD COUNT 2.77 10^6/uL (4.20-5.40); RED CELL DISTRIBUTION WIDTH 15.1 % (12.0-15.0); WHITE BLOOD COUNT 7.5 x10^3/uL (4.8-10.8)
== END 2020-12-14 14:21 | disposition home or self-care (01) ==
LOC: LAB.S 14:20
PROVIDERS: ATTEND Internal Medicine
DX: K31.7 Polyp of stomach and duodenum (principal)
CPT/HCPCS: 36415; 85025

== ENCOUNTER 2022-02-22 15:13 | Outpatient (CLI) | payer MEDICARE ==
--- NOTE | 2022-02-23 11:03 | Mammography Report ---
BILATERAL DIGITAL SCREENING MAMMOGRAM 3D/2D: 02/22/2022 CLINICAL: Routine screening. Family history of breast cancer. Comparison is made to exams dated: 02/14/2019 mammogram and 12/25/2018 mammogram - [facility]. Both breasts are almost entirely fatty (category a/<25% glandular tissue). No significant masses, calcifications, or other findings are seen in either breast. There has been no significant interval change. IMPRESSION: NEGATIVE There is no mammographic evidence of malignancy. A 1 year screening mammogram is recommended. Based on the Tyrer Cuzick model (a risk assessment model) the patients lifetime risk is 8.6% and her 10 year risk is 6.4%. According to the ACR, ACS, and NCCN guidelines, an annual breast MRI exam brien g with mammogram is recommended if the patients lifetime risk is 20% or greater. This exam was interpreted at Station ID: [id number]. NOTE: For mammograms, a report in lay terms will be sent to the patient. Approximately 15% of breast malignancies will not be visualized mammographically. In the management of a palpable breast mass, a negative mammogram must not discourage biopsy of a clinically suspicious lesion. Electronically Signed By: Pradeep Aldridge M.D. aty/isidro:02/23/2022 07:58:01 ACR BI-RADS Category 1: Negative 3341F PARENCHYMAL PATTERN: (F) - The breast(s) demonstrate(s) diffuse fatty replacement. BI-RADS CATEGORY: (1) - 1 RECOMMENDATION: (ANNUAL) - Recommend routine annual screening mammography. [id number] 1 year screening LATERALITY: (B)
== END 2022-02-22 15:14 | disposition home or self-care (01) ==
LOC: DI.S 15:13
PROVIDERS: ATTEND Registered Nurse
DX: Z12.31 Encounter for screening mammogram for malignant neoplasm of breast (principal); Z80.3 Family history of malignant neoplasm of breast

== ENCOUNTER 2023-03-17 08:00 | Outpatient (CLI) | payer MEDICARE | END 2023-03-17 08:01 | disposition home or self-care (01) | LOC: LAB.S 08:00 | PROVIDERS: ATTEND Physician Assistant Medical | DX: J45.901 Unspecified asthma with (acute) exacerbation (principal) ==